=== PATIENT | male | born 1930 | race Two or more races ===

== ENCOUNTER 2017-07-23 15:19 | Inpatient (IN) | payer MEDICARE, MEDICAID ==
--- NOTE | 2017-07-23 15:59 | ED Physician Chart ---
ED Chief Complaint/HPI - Patient Information Date Seen:: 07/23/17 Time Seen:: 15:50 Chief Complaint:: Aggressive for 2 weeks History of Present Illness:: 86 yo male, with chronic CHF, AFib on coumadin, dementia for 4 years, resided in a convalescent home. The patient was brought to ER by ambulance and the daughter also presented at ER. Per daughter, the patient was noticed to be aggressive for 2 weeks. He would not follow command. Refused to be changed for clothing. Refused to have shower. His urine was noticed to have bad odor. The facility requested further evaluation and management of the patient. The patient was hospitalized 4 months ago altered mental status. Allergies:: Allergies Allergy/AdvReac Type Severity Reaction Status Date / Time No Known Allergies Allergy Verified 07/23/17 15:30 Vitals:: Vital Signs - 8 hr 07/23/17 15:30 Temp 97.8 F HR 78 RR 15 BP 108/50 O2 Sat % 98 ED Review of Systems - Review of Systems Skin: No skin lesions Head: No headache ENT: No earache Neck: No neck pain Cardio Vascular: No chest pain Pulmonary: No SOB GI: No vomiting G/U: Other (urinary retention ) Musculoskeletal: Bone or joint pain Endocrine: Polyuria ED Past Medical History - Past Medical History Obtainable: Yes (History was provided by his daughter) Past Medical History: CAD, Dementia Family History: None Social History: Smoker (quit 6 years ago), Alcohol (quit 6 years ago), No Drug Use Surgical History: CABG (triple vessel bipass) Family Medical History - Family Member Mother History Unknown: Yes Ethnicity: Living Status: ED Physical Exam - Physical Examination General/Constitutional: Awake Other Gen/Cons comments:: wheelchair bound Head: Atraumatic Eyes: Lids, conjuctiva normal, PERRL, EOMI Other ENMT comments:: repetitive spitting, hearing loss left ear, hearing impairment right ear Neck: Full ROM w/o pain Respiratory: Clear to Auscultation Cardio Vascular: RRR, No murmur, gallop, rubs, NL S1 S2 GI: No organomegaly, Nondistended Other comments:: wearing diaper Extremities: No edema Other Neuro/Psych comments:: Oriented to name only ED Labs/Radiology/EKG Results - Lab Results Results: Na 134 ED Assessment - Assessment General Assessment: Dementia Altered mental status CHF Afib Hyponatremia Excludes all billable procedures: Yes This condition life threatening/high prob of deterioration: No Assessment/Comments:: CBC, CMP, UA/UC, CXR, EKG, BNP, Troponin NS 1L bolus Admit to inpatient services ED Septic Shock - . Is Septic Shock (SBP<90, OR Lactate>4 mmol\L) present?: No - <6hrs of presentation: Vital Signs: Vital Signs - 8 hr 07/23/17 15:30 Temp 97.8 F HR 78 RR 15 BP 108/50 O2 Sat % 98 ED Discharge Plan - Patient Disposition Admit/Discharge/Transfer: Acute Care w/in this hosp Condition at Disposition: Unchanged
[2017-07-23 16:39] LABS: URINE BILIRUBIN NEGATIVE (NEGATIVE); URINE BLOOD NEGATIVE (NEGATIVE); URINE GLUCOSE (UA) NEGATIVE (NEGATIVE); URINE KETONE NEGATIVE (NEGATIVE); URINE PROTEIN NEGATIVE (NEGATIVE); URINE UROBILINOGEN 0.2 E.U./dL (0.2 - 1.0)
[2017-07-23 16:45] LABS: % BASOPHILS 0.3 % (0.0-2.0); % EOSINOPHILS 4.2 % (0.0-5.0); % LYMPHOCYTES 25.8 % (20.0-50.0); % MONOCYTES 12.7 % (2.0-10.0); HEMOGLOBIN 12.5 gm/dL (12-16); MEAN CELL VOLUME 84.9 fl (80-99); MEAN CORPUSCULAR HEMOGLOBIN 28.7 pg (27.0-31.0); MEAN CORPUSCULAR HGB CONC 33.8 pg (28.0-36.0); MEAN PLATELET VOLUME 10.5 fl; NEUTROPHILE ABSOLUTE 3.4 Th/cmm (1.8-8.0); PLATELET COUNT 74 Th/cmm (150-400); RED BLOOD COUNT 4.36 Mil/cmm (3.80-5.80); RED CELL DISTRIBUTION WIDTH 14.8 % (11.5-20.0)
[2017-07-23 16:59] LABS: URINE COLOR YELLOW
[2017-07-23 17:01] LABS: URINE BACTERIA NONE SEEN /hpf (NONE SEEN); URINE EPITHELIAL CELLS NONE SEEN /lpf (FEW); URINE RBC NONE SEEN /hpf (0-5); URINE WBC NONE SEEN /hpf (0-5)
[2017-07-23 17:08] LABS: ALB/GLOB RATIO 1.1 (1.0-1.8); ALKALINE PHOSPHATASE 98 U/L (34-104); ANION GAP 7.6 (7.0-16.0); BILIRUBIN,TOTAL 0.3 mg/dL (0.3-1.0); BUN - UREA NITROGEN 22 mg/dL (7-25); CALCIUM SERUM 8.7 mg/dL (8.6-10.3); CARBON DIOXIDE 26.6 mEq/L (21.0-31.0); CHLORIDE 104 mEq/L (98-107); CREATININE - SERUM 1.1 mg/dL (0.7-1.3); GLUCOSE 103 mg/dL (70-105); POTASSIUM SERUM 4.2 mEq/L (3.5-5.1); SGOT 14 U/L (13-39); SGPT/ALT 12 U/L (7-52); SODIUM SERUM 134 mEq/L (136-145)
[2017-07-23] MEDS ORDERED: Sodium Chloride 0.9% 1,000 ML IV ONE (17:13)
[2017-07-23 19:48] LABS: INR 2.32 (0.5-1.4); PROTHROMBIN TIME (TEST) 25.3 SECONDS (9.5-11.5)
[2017-07-23 23:38] VITALS: BP 137/68
[2017-07-23] MEDS ORDERED: Pneumococcal Vaccine 0.5 mL Vial IM ONE (23:49)
--- NOTE | 2017-07-23 23:59 | History & Physical ---
ADMIT DATE: 07/23/2017 CHIEF COMPLAINT: Agitation and shortness of breath. HISTORY OF PRESENT ILLNESS: The patient is an 86-year-old male with long history of dementia, CHF, coronary artery disease, resident at [facility], transferred to the Emergency Room with shortness of breath and agitation. Initial workup significant for CHF exacerbation. The patient admitted to telemetry for more advanced treatment. The patient is a poor historian. PAST MEDICAL HISTORY: Significant for hypertension, coronary artery disease, CHF, and dementia. PAST SURGICAL HISTORY: No recent surgery. ALLERGIES: None. MEDICATIONS: Follow admission reconciliation. SOCIAL HISTORY: No smoking, alcohol or drug use. FAMILY HISTORY: Noncontributory. REVIEW OF SYSTEMS: RENAL SYSTEM: No history of chronic renal disorder. CARDIOVASCULAR SYSTEM: He has history of coronary artery disease, CHF and hypertension. ENDOCRINE SYSTEM: No diabetes or thyroid problem. GASTROINTESTINAL SYSTEM: No upper or lower gastrointestinal bleed. NEUROLOGICAL SYSTEM: No seizure disorder. MUSCULOSKELETAL SYSTEM: No muscular dystrophy. HEMATOLOGIC SYSTEM: No bleeding tendencies. RESPIRATORY SYSTEM: No asthma. GENITOURINARY: No dysuria or hematuria. PHYSICAL EXAMINATION: GENERAL: He is awake, not coherent. VITAL SIGNS: Temperature 98, heart rate . HEENT: Normocephalic. Pupils reactive to light and accommodation. Sclerae clear. NECK: Supple. Negative for lymphadenopathy, JVD, or bruit. CHEST: Entry of air bilaterally diminished. No rhonchi, rales, or wheezing. HEART: S1, S2 normal. No murmur or gallop. ABDOMEN: Soft. Bowel sounds positive. EXTREMITIES: No edema. NEUROLOGIC: He is awake, not coherent. ASSESSMENT: 1. Acute exacerbation of congestive heart failure. 2. Hypertension. 3. Coronary artery disease. 4. Dementia. 5. Hyperlipidemia. 6. Benign prostatic hypertrophy. PLAN: The patient is in the hospital under Dr. Cabrera's service. He is started on cardiac diet. The patient will resume his medications. CBC, CMP, PT, INR and BMP in a.m. The patient is a full code. JOB# [id number]
--- NOTE | 2017-07-24 08:20 | Diagnostic Imaging Report ---
Exam: Portable summation of chest HISTORY: Bony. Findings: Portable examination of the chest at 1633 hours reviewed. The study demonstrates multiple metallic sutures status transsternal thoracotomy. No active pulmonic infiltrates or effusions are noted. COPD changes appreciated. Bony thorax is intact. IMPRESSION: No acute disease. Mild congestion cannot be excluded. Clinical correlation and follow-up dictation recommended.
[2017-07-24] MEDS: Aspirin 81mg Chewable Tab PO SCH (09:13)
[2017-07-24 10:05] LABS: % BASOPHILS 0.2 % (0.0-2.0); % EOSINOPHILS 3.8 % (0.0-5.0); % LYMPHOCYTES 17.6 % (20.0-50.0); % MONOCYTES 9.8 % (2.0-10.0); % NEUTROPHILS 68.6 % (40.0-80.0); HEMATOCRIT 38.8 % (41.0-60); HEMOGLOBIN 12.7 gm/dL (12-16); MEAN CELL VOLUME 83.7 fl (80-99); MEAN CORPUSCULAR HEMOGLOBIN 27.5 pg (27.0-31.0); MEAN CORPUSCULAR HGB CONC 32.8 pg (28.0-36.0); MEAN PLATELET VOLUME 10.5 fl; PLATELET COUNT 76 Th/cmm (150-400); RED BLOOD COUNT 4.64 Mil/cmm (3.80-5.80); RED CELL DISTRIBUTION WIDTH 15.1 % (11.5-20.0)
[2017-07-24 10:06] LABS: WHITE BLOOD COUNT 7.3 Th/cmm (4.8-10.8)
[2017-07-24 10:17] LABS: INR 2.32 (0.5-1.4); PROTHROMBIN TIME (TEST) 25.2 SECONDS (9.5-11.5)
[2017-07-24 10:24] LABS: ALKALINE PHOSPHATASE 85 U/L (34-104); ANION GAP 4.4 (7.0-16.0); BILIRUBIN,TOTAL 0.3 mg/dL (0.3-1.0); BUN - UREA NITROGEN 15 mg/dL (7-25); BUN/CREATININE RATIO 16.7; CALCIUM SERUM 8.3 mg/dL (8.6-10.3); CARBON DIOXIDE 26.5 mEq/L (21.0-31.0); CHLORIDE 106 mEq/L (98-107); CREATININE - SERUM 0.9 mg/dL (0.7-1.3); GLUCOSE 85 mg/dL (70-105); POTASSIUM SERUM 3.9 mEq/L (3.5-5.1); SGOT 15 U/L (13-39); SGPT/ALT 10 U/L (7-52); SODIUM SERUM 133 mEq/L (136-145)
--- NOTE | 2017-07-24 14:05 | Internal Medicine Prog Note ---
Internal Medicine Subjective - Subjective Service Date: 07/24/17 Patient seen and examined:: with staff (HE IS MORE QUIETE,NOT COHERENT.) Patient is:: awake, non-interactive, in bed, confused Per staff patient has:: no adverse event Internal Medicine Objective - Results Result Diagrams: 07/24/17 09:57 07/24/17 09:57 Recent Labs: Laboratory Last Values WBC 7.3 Th/cmm (4.8-10.8) D 07/24/17 09:57 RBC 4.64 Mil/cmm (3.80-5.80) 07/24/17 09:57 Hgb 12.7 gm/dL (12-16) 07/24/17 09:57 Hct 38.8 % (41.0-60) L 07/24/17 09:57 MCV 83.7 fl (80-99) 07/24/17 09:57 MCH 27.5 pg (27.0-31.0) 07/24/17 09:57 MCHC Differential 32.8 pg (28.0-36.0) 07/24/17 09:57 RDW 15.1 % (11.5-20.0) 07/24/17 09:57 Plt Count 76 Th/cmm (150-400) L 07/24/17 09:57 MPV 10.5 fl 07/24/17 09:57 Neutrophils % 68.6 % (40.0-80.0) 07/24/17 09:57 Lymphocytes % 17.6 % (20.0-50.0) L 07/24/17 09:57 Monocytes % 9.8 % (2.0-10.0) 07/24/17 09:57 Eosinophils % 3.8 % (0.0-5.0) 07/24/17 09:57 Basophils % 0.2 % (0.0-2.0) 07/24/17 09:57 PT 25.2 SECONDS (9.5-11.5) H 07/24/17 09:57 INR 2.32 (0.5-1.4) H 07/24/17 09:57 PTT (Actin FS) 40.6 SECONDS (26.0-38.0) H 07/23/17 16:25 Sodium 133 mEq/L (136-145) L 07/24/17 09:57 Potassium 3.9 mEq/L (3.5-5.1) 07/24/17 09:57 Chloride 106 mEq/L (98-107) 07/24/17 09:57 Carbon Dioxide 26.5 mEq/L (21.0-31.0) 07/24/17 09:57 Anion Gap 4.4 (7.0-16.0) L 07/24/17 09:57 BUN 15 mg/dL (7-25) 07/24/17 09:57 Creatinine 0.9 mg/dL (0.7-1.3) 07/24/17 09:57 Est GFR ( Amer) TNP 07/24/17 09:57 Est GFR (Non-Af Amer) TNP 07/24/17 09:57 BUN/Creatinine Ratio 16.7 07/24/17 09:57 Glucose 85 mg/dL (70-105) 07/24/17 09:57 Calcium 8.3 mg/dL (8.6-10.3) L 07/24/17 09:57 Total Bilirubin 0.3 mg/dL (0.3-1.0) 07/24/17 09:57 AST 15 U/L (13-39) 07/24/17 09:57 ALT 10 U/L (7-52) 07/24/17 09:57 Alkaline Phosphatase 85 U/L (34-104) 07/24/17 09:57 Troponin I 0.02 ng/mL (0.01-0.05) 07/23/17 16:25 B-Natriuretic Peptide 223.0 pg/mL (5.0-100.0) H 07/23/17 16:25 Total Protein 6.3 gm/dL (6.0-8.3) 07/24/17 09:57 Albumin 3.1 gm/dL (4.2-5.5) L 07/24/17 09:57 Globulin 3.2 gm/dL 07/24/17 09:57 Albumin/Globulin Ratio 1.0 (1.0-1.8) 07/24/17 09:57 Prostate Specific Ag 1.9 ng/mL (0.0-4.0) 07/23/17 16:25 Urine Source CATH 07/23/17 16:17 Urine Color YELLOW 07/23/17 16:17 Urine Clarity CLEAR (CLEAR) 07/23/17 16:17 Urine pH 6.0 (4.6 - 8.0) 07/23/17 16:17 Ur Specific [place] 1.025 (1.005-1.030) 07/23/17 16:17 Urine Protein NEGATIVE mg/dL (NEGATIVE) 07/23/17 16:17 Urine Glucose (UA) NEGATIVE mg/dL (NEGATIVE) 07/23/17 16:17 Urine Ketones NEGATIVE mg/dL (NEGATIVE) 07/23/17 16:17 Urine Blood NEGATIVE (NEGATIVE) 07/23/17 16:17 Urine Nitrate NEGATIVE (NEGATIVE) 07/23/17 16:17 Urine Bilirubin NEGATIVE (NEGATIVE) 07/23/17 16:17 Urine Urobilinogen 0.2 E.U./dL (0.2 - 1.0) 07/23/17 16:17 Ur Leukocyte Esterase NEGATIVE (NEGATIVE) 07/23/17 16:17 Urine RBC NONE SEEN /hpf (0-5) 07/23/17 16:17 Urine WBC NONE SEEN /hpf (0-5) 07/23/17 16:17 Ur Epithelial Cells NONE SEEN /lpf (FEW) 07/23/17 16:17 Urine Bacteria NONE SEEN /hpf (NONE SEEN) 07/23/17 16:17 - Physical Exam Vitals and I&O: Vital Signs Temp 97.6 F 07/24/17 09:39 Pulse 71 07/24/17 09:39 Resp 18 07/24/17 09:39 BP 144/66 07/24/17 09:39 Pulse Ox 96 07/24/17 09:39 Intake & Output 07/23/17 07/24/17 07/24/17 18:59 06:59 18:59 Intake Total 120 Balance 120 Weight (lbs) 63.049 kg Intake: Oral 120 Other: # Voids 5 Active Medications: Current Medications Acetaminophen (Tylenol) 650 mg PO Q4HR PRN PRN Reason: Pain or Fever >101 Stop: 09/21/17 21:30 Amiodarone HCl (Cordarone) 200 mg PO DAILY [facility] Stop: 09/22/17 08:59 Last Admin: 07/24/17 09:13 Dose: 200 mg Aspirin (Aspirin Chewable) 81 mg PO DAILY [facility] Stop: 09/22/17 08:59 Last Admin: 07/24/17 09:13 Dose: 81 mg Atorvastatin Calcium (Lipitor) 20 mg PO HS EV Stop: 09/22/17 20:59 Carvedilol (Coreg) 3.125 mg PO BID EV Stop: 09/22/17 08:59 Last Admin: 07/24/17 09:14 Dose: 3.125 mg Folic Acid (Folate) 1 mg PO DAILY [facility] Stop: 09/22/17 08:59 Last Admin: 07/24/17 09:14 Dose: 1 mg Furosemide (Lasix) 20 mg PO DAILY [facility] Stop: 09/22/17 08:59 Last Admin: 07/24/17 09:13 Dose: 20 mg Lorazepam (Ativan) 0.5 mg PO Q6HR PRN; Protocol PRN Reason: Agitation Stop: 09/22/17 12:50 Memantine (Namenda) 10 mg PO HS [facility] Stop: 09/22/17 20:59 Tamsulosin HCl (Flomax) 0.4 mg PO BID EV Stop: 09/22/17 08:59 Last Admin: 07/24/17 09:13 Dose: 0.4 mg Warfarin Sodium (Coumadin) 1 mg PO C [facility] PRN Reason: Protocol Stop: 09/22/17 12:59 Last Admin: 07/24/17 13:17 Dose: 1 mg Warfarin Sodium (Coumadin Per Pharmacy) 1 ea [facility] PRN PRN; Protocol PRN Reason: RX MONITORING Stop: 09/22/17 10:12 General: demented HEENT: NC/AT, PERRLA, EOMI Neck: Supple Lungs: CTAB Cardiovascular: Normal S1, Normal S2, without murmur Abdomen: soft, non-tender, non-distended Extremities: clear Neurological: no change Internal Medicine Assmt/Plan - Assessment Assessment: 1.CHF EXACERBATION. 2.HTN. 3.CAD. 4.DEMENTIA. - Plan Plan: CONTINUE ON CURRENT MEDICATION AND DIET.
[2017-07-24] MEDS: Atorvastatin Calcium 10 MG TAB PO SCH (20:26)
--- NOTE | 2017-07-25 05:35 | Consultation ---
DATE OF CONSULTATION: 07/24/2017 IDENTIFYING INFORMATION: The patient is an 86-year-old male. REASON FOR CONSULTATION: The patient has been yelling and screaming, agitated, yelling at staff, trying to hit the staff, hard to redirect, throwing things. HISTORY OF PRESENT ILLNESS: The patient was admitted because of congestive heart failure. He is demented and has coronary artery disease, he is a resident of [facility] and transferred to the Emergency Room, ____ staff and agitation. He was diagnosed with congestive heart failure, was admitted to telemetry. The patient himself was a poor historian. He is demented, confused. He has been on Namenda. PAST PSYCHIATRIC HISTORY: Dementia. MEDICAL HISTORY: As per medical Dr. Cabrera, the patient has acute exacerbation, congestive heart failure, hypertension, coronary artery disease, hyperlipidemia and benign prostatic hypertrophy. ALLERGIES: The patient has no known drug allergies. FAMILY AND SOCIAL HISTORY: The family was here earlier, the patient has been a resident at [facility] and no further information is available. MENTAL STATUS EXAMINATION: The patient is appropriately dressed, not well groomed. He was semi-alert, he was uncooperative, earlier he was yelling and screaming, unable to make safe plan for self-care or make reasonable plan for self-care or participate in meaningful conversation, unable to test his memory, he would not answer any questions, but he has been aggressive, irritable, demented, confused. His insight and judgment is impaired. He would not answer any question regarding hallucination or paranoia. They reported earlier, that he slept last night and eating well. IMPRESSION: AXIS I: Mood disorder, not otherwise specified, dementia. MEDICAL DIAGNOSES: Deferred to Dr. Cabrera. I would recommend to add Ativan and if needed then can add Risperdal. The patient was transferred to [facility] if continues to be agitated and medically cleared. Thank you very much for allowing me to participate in the care of this most interesting gentleman. JOB# [id number]
[2017-07-25 08:53] LABS: PROTHROMBIN TIME (TEST) 21.5 SECONDS (9.5-11.5)
[2017-07-25] MEDS: Aspirin 81mg Chewable Tab PO SCH (08:59)
[2017-07-25] MEDS: Atorvastatin Calcium 10 MG TAB PO SCH (20:40)
--- NOTE | 2017-07-25 20:47 | Internal Medicine Prog Note ---
Internal Medicine Subjective - Subjective Service Date: 07/25/17 Patient seen and examined:: with staff (HE IS DOIN WELL.) Patient is:: awake, non-interactive, in bed, confused Per staff patient has:: no adverse event Internal Medicine Objective - Results Result Diagrams: 07/24/17 09:57 07/24/17 09:57 Recent Labs: Laboratory Last Values WBC 7.3 Th/cmm (4.8-10.8) D 07/24/17 09:57 RBC 4.64 Mil/cmm (3.80-5.80) 07/24/17 09:57 Hgb 12.7 gm/dL (12-16) 07/24/17 09:57 Hct 38.8 % (41.0-60) L 07/24/17 09:57 MCV 83.7 fl (80-99) 07/24/17 09:57 MCH 27.5 pg (27.0-31.0) 07/24/17 09:57 MCHC Differential 32.8 pg (28.0-36.0) 07/24/17 09:57 RDW 15.1 % (11.5-20.0) 07/24/17 09:57 Plt Count 76 Th/cmm (150-400) L 07/24/17 09:57 MPV 10.5 fl 07/24/17 09:57 Neutrophils % 68.6 % (40.0-80.0) 07/24/17 09:57 Lymphocytes % 17.6 % (20.0-50.0) L 07/24/17 09:57 Monocytes % 9.8 % (2.0-10.0) 07/24/17 09:57 Eosinophils % 3.8 % (0.0-5.0) 07/24/17 09:57 Basophils % 0.2 % (0.0-2.0) 07/24/17 09:57 PT 21.5 SECONDS (9.5-11.5) H 07/25/17 08:12 INR 2.00 (0.5-1.4) H 07/25/17 08:12 PTT (Actin FS) 40.6 SECONDS (26.0-38.0) H 07/23/17 16:25 Sodium 133 mEq/L (136-145) L 07/24/17 09:57 Potassium 3.9 mEq/L (3.5-5.1) 07/24/17 09:57 Chloride 106 mEq/L (98-107) 07/24/17 09:57 Carbon Dioxide 26.5 mEq/L (21.0-31.0) 07/24/17 09:57 Anion Gap 4.4 (7.0-16.0) L 07/24/17 09:57 BUN 15 mg/dL (7-25) 07/24/17 09:57 Creatinine 0.9 mg/dL (0.7-1.3) 07/24/17 09:57 Est GFR ( Amer) TNP 07/24/17 09:57 Est GFR (Non-Af Amer) TNP 07/24/17 09:57 BUN/Creatinine Ratio 16.7 07/24/17 09:57 Glucose 85 mg/dL (70-105) 07/24/17 09:57 Calcium 8.3 mg/dL (8.6-10.3) L 07/24/17 09:57 Total Bilirubin 0.3 mg/dL (0.3-1.0) 07/24/17 09:57 AST 15 U/L (13-39) 07/24/17 09:57 ALT 10 U/L (7-52) 07/24/17 09:57 Alkaline Phosphatase 85 U/L (34-104) 07/24/17 09:57 Troponin I 0.02 ng/mL (0.01-0.05) 07/23/17 16:25 B-Natriuretic Peptide 223.0 pg/mL (5.0-100.0) H 07/23/17 16:25 Total Protein 6.3 gm/dL (6.0-8.3) 07/24/17 09:57 Albumin 3.1 gm/dL (4.2-5.5) L 07/24/17 09:57 Globulin 3.2 gm/dL 07/24/17 09:57 Albumin/Globulin Ratio 1.0 (1.0-1.8) 07/24/17 09:57 Prostate Specific Ag 1.9 ng/mL (0.0-4.0) 07/23/17 16:25 Urine Source CATH 07/23/17 16:17 Urine Color YELLOW 07/23/17 16:17 Urine Clarity CLEAR (CLEAR) 07/23/17 16:17 Urine pH 6.0 (4.6 - 8.0) 07/23/17 16:17 Ur Specific [place] 1.025 (1.005-1.030) 07/23/17 16:17 Urine Protein NEGATIVE mg/dL (NEGATIVE) 07/23/17 16:17 Urine Glucose (UA) NEGATIVE mg/dL (NEGATIVE) 07/23/17 16:17 Urine Ketones NEGATIVE mg/dL (NEGATIVE) 07/23/17 16:17 Urine Blood NEGATIVE (NEGATIVE) 07/23/17 16:17 Urine Nitrate NEGATIVE (NEGATIVE) 07/23/17 16:17 Urine Bilirubin NEGATIVE (NEGATIVE) 07/23/17 16:17 Urine Urobilinogen 0.2 E.U./dL (0.2 - 1.0) 07/23/17 16:17 Ur Leukocyte Esterase NEGATIVE (NEGATIVE) 07/23/17 16:17 Urine RBC NONE SEEN /hpf (0-5) 07/23/17 16:17 Urine WBC NONE SEEN /hpf (0-5) 07/23/17 16:17 Ur Epithelial Cells NONE SEEN /lpf (FEW) 07/23/17 16:17 Urine Bacteria NONE SEEN /hpf (NONE SEEN) 07/23/17 16:17 - Physical Exam Vitals and I&O: Vital Signs Temp 98.7 F 07/25/17 16:00 Pulse 60 07/25/17 16:41 Resp 18 07/25/17 16:00 BP 119/72 07/25/17 16:41 Pulse Ox 96 07/25/17 16:00 Intake & Output 07/25/17 07/25/17 07/26/17 06:59 18:59 06:59 Intake Total 100 640 Output Total 500 1000 Balance -400 -360 Weight (lbs) 71.985 kg 63.049 kg Intake: Oral 100 640 Output: Urine 500 1000 Other: # Bowel Movements 0 1 Active Medications: Current Medications Acetaminophen (Tylenol) 650 mg PO Q4HR PRN PRN Reason: Pain or Fever >101 Stop: 09/21/17 21:30 Amiodarone HCl (Cordarone) 200 mg PO DAILY [facility] Stop: 09/22/17 08:59 Last Admin: 07/25/17 08:58 Dose: 200 mg Aspirin (Aspirin Chewable) 81 mg PO DAILY [facility] Stop: 09/22/17 08:59 Last Admin: 07/25/17 08:59 Dose: 81 mg Atorvastatin Calcium (Lipitor) 20 mg PO HS [facility] Stop: 09/22/17 20:59 Last Admin: 07/25/17 20:40 Dose: 20 mg Carvedilol (Coreg) 3.125 mg PO BID EV Stop: 09/22/17 08:59 Last Admin: 07/25/17 16:41 Dose: 3.125 mg Folic Acid (Folate) 1 mg PO DAILY [facility] Stop: 09/22/17 08:59 Last Admin: 07/25/17 08:59 Dose: 1 mg Furosemide (Lasix) 20 mg PO DAILY [facility] Stop: 09/22/17 08:59 Last Admin: 07/25/17 08:58 Dose: 20 mg Lorazepam (Ativan) 0.5 mg PO Q6HR PRN; Protocol PRN Reason: Agitation Stop: 09/22/17 12:50 Last Admin: 07/25/17 13:29 Dose: 0.5 mg Memantine (Namenda) 10 mg PO HS [facility] Stop: 09/22/17 20:59 Last Admin: 07/25/17 20:40 Dose: 10 mg Tamsulosin HCl (Flomax) 0.4 mg PO BID [facility] Stop: 09/22/17 08:59 Last Admin: 07/25/17 16:41 Dose: 0.4 mg Warfarin Sodium (Coumadin) 1 mg PO C [facility] PRN Reason: Protocol Stop: 09/22/17 12:59 Last Admin: 07/25/17 13:29 Dose: 1 mg Warfarin Sodium (Coumadin Per Pharmacy) 1 ea [facility] PRN PRN; Protocol PRN Reason: RX MONITORING Stop: 09/22/17 10:12 General: demented HEENT: NC/AT, PERRLA, EOMI Neck: Supple Lungs: CTAB Cardiovascular: Normal S1, Normal S2, without murmur Abdomen: soft, non-tender, non-distended Extremities: clear Neurological: no change Internal Medicine Assmt/Plan - Assessment Assessment: 1.CHF EXACERBATION. 2.HTN. 3.CAD. 4.DEMENTIA. - Plan Plan: CONTINUE ON CURRENT MEDICATION AND DIET.HE IS CLEAR TO GO TO [facility].
--- NOTE | 2017-07-26 02:25 | Progress Notes ---
DATE: 07/25/2017 Case was discussed with staff of the patient. The patient is a bit calmer today. He was feeding himself, but however, he was impacted with me in any meaningful conversations internally occupied, but is acting out. Behavior is better. He is not throwing things and yelling and screaming as he was yesterday and he started acting out, can go to [facility] if medically cleared. Thank you very much for allowing me to participate in the care of this most interesting gentleman. JOB# [id number]
[2017-07-26 06:09] LABS: INR 1.9 (0.5-1.4); PROTHROMBIN TIME (TEST) 20.5 SECONDS (9.5-11.5)
[2017-07-26] MEDS: Aspirin 81mg Chewable Tab PO SCH (09:14)
[2017-07-26] MEDS ORDERED: Haloperidol Lactate 5 mg/mL 1mL Vial ONE (10:53)
[2017-07-26] MEDS ORDERED: Haloperidol Lactate 5 mg/mL 1mL Vial IM ONE (11:03)
== END 2017-07-26 15:29 | DRG 292 ==
LOC: ER 15:19 → TELE 19:40 → MSI 07-26 08:58
PROVIDERS: ADMIT Family Medicine; ATTEND Family Medicine
DX: I11.0 Hypertensive heart disease with heart failure (principal); E87.1 Hypo-osmolality and hyponatremia; F03.90 Unspecified dementia, unspecified severity, without behavioral disturbance, psychotic disturbance, mood disturbance, and anxiety; I48.91 Unspecified atrial fibrillation; I50.43 Acute on chronic combined systolic (congestive) and diastolic (congestive) heart failure; I50.42 Chronic combined systolic (congestive) and diastolic (congestive) heart failure; F17.210 Nicotine dependence, cigarettes, uncomplicated; F39 Unspecified mood [affective] disorder; I25.10 Atherosclerotic heart disease of native coronary artery without angina pectoris; E78.5 Hyperlipidemia, unspecified; N40.0 Benign prostatic hyperplasia without lower urinary tract symptoms; Z95.1 Presence of aortocoronary bypass graft; Z79.01 Long term (current) use of anticoagulants
CPT/HCPCS: 36415-UA; 71010-TC; 80053-TC; 81001-TC; 83880-TC; 84153-90; 84484-TC; 85025-TC; 85610-TC; 93005; J1200; J1630; J2060; J7030; Z7610

== ENCOUNTER 2017-07-26 15:32 | Inpatient (IN) | payer MEDICARE, MEDICAID ==
[2017-07-26 16:26] VITALS: BP 136/68
[2017-07-26] MEDS: Atorvastatin Calcium 10 MG TAB PO SCH (20:58)
--- NOTE | 2017-07-26 22:30 | Progress Notes ---
DATE: 07/26/2017 Case was discussed with staff of the patient, reviewed records. The patient continues to be on 1:1. He is unpredictable, impulsive, needing redirection. He is not responding well to redirection. The patient still unpredictable, impulsive. The patient will be transferred to [facility] and to further adjust his medications ____. Thank you very much for allowing me to participate in the care of this interesting gentleman. JOB# [id number]
[2017-07-27 06:32] LABS: INR 2.09 (0.5-1.4); PROTHROMBIN TIME (TEST) 22.6 SECONDS (9.5-11.5)
[2017-07-27 08:07] LABS: HEMATOCRIT 42.2 % (41.0-60)
[2017-07-27] MEDS: Aspirin 81mg Chewable Tab PO SCH (10:23)
--- NOTE | 2017-07-27 12:52 | History & Physical ---
ADMIT DATE: 07/27/2017 HISTORY OF PRESENT ILLNESS: The patient is an 86-year-old male with long history of coronary artery disease, ischemic cardiomyopathy, and dementia, admitted to Geropsych Department at [facility] for more advanced treatment. Apparently, the patient recently had been yelling and has aggressive behavior, otherwise no fever, no chills, no shortness of breath. PAST MEDICAL HISTORY: Significant for dementia, coronary artery disease, and ischemic cardiomyopathy. PAST SURGICAL HISTORY: No recent surgery. ALLERGIES: None. MEDICATIONS: Follow admission reconciliation. SOCIAL HISTORY: No smoking, alcohol or drug use. FAMILY HISTORY: Noncontributory. REVIEW OF SYSTEMS: RENAL SYSTEM: No history of chronic renal disorder. CARDIOVASCULAR SYSTEM: He has history of coronary artery disease and cardiomyopathy. ENDOCRINE SYSTEM: No diabetes or thyroid problem. GASTROINTESTINAL SYSTEM: No upper or lower gastrointestinal bleed. NEUROLOGICAL: He has history of dementia. PHYSICAL EXAMINATION: GENERAL: He is awake, not coherent. VITAL SIGNS: Temperature 98, heart rate 64, blood pressure 99/58. HEENT: Normocephalic. Pupils reacting to light and accommodation. Sclerae clear. NECK: Supple. Negative for lymphadenopathy, JVD or bruit. CHEST: Bilateral normal. No rhonchi or wheezing. HEART: S1 and S2 normal. ABDOMEN: Soft. Bowel sounds positive. EXTREMITIES: No edema. NEUROLOGIC: He is awake, moving upper and lower extremities, not following commands. LABORATORY DATA: INR 2.09. ASSESSMENT: 1. Coronary artery disease. 2. Ischemic cardiomyopathy. 3. Hyperlipidemia. 4. Dementia. PLAN: The patient admitted to the hospital under Dr. Lynch's service. MEDICAL PROBLEM TO BE ADDRESSED DURING HOSPITALIZATION: Dementia and psychosis. MEDICAL PROBLEMS TO BE ADDRESSED AT DISCHARGE: Cardiomyopathy and hyperlipidemia. The patient will continue on current medication and diet and we will continue monitoring his PT/INR by the pharmacist. Also, we are going to order CBC for tomorrow. The patient is a full code. Case discussed with the family over telephone. JOB# [id number]
--- NOTE | 2017-07-27 13:52 | History & Physical ---
ADMIT DATE: 07/26/2017 IDENTIFYING INFORMATION: The patient is an 86-year-old male. CHIEF COMPLAINT: No answer. HISTORY OF PRESENT ILLNESS: The patient was transferred from the medical floor. I have seen him on the med/surg unit, he was acting out. He was not cooperative, easily agitated. I initiated on him Ativan. The patient is a poor historian. Unable to participate in a meaningful conversation or make plan for self-care. PAST PSYCHIATRIC HISTORY: Unobtainable. ALLERGIES: THE PATIENT HAS NO KNOWN DRUG ALLERGIES. MEDICAL HISTORY: The patient has benign prostatic hypertrophy, hypertension, and hypercholesterolemia. MEDICATIONS: He is on blood thinners. FAMILY AND SOCIAL HISTORY: Unobtainable. MENTAL STATUS EXAMINATION: The patient is appropriately dressed, not well groomed. He was irritable and somewhat angry, unable to participate in a meaningful conversation or make a plan for self-care. His long and short term memory is poor, unable to answer questions or suicide, homicide or tell me her, his age, where he is, why he is here. Insight and judgment is impaired. IMPRESSION: AXIS I: Psychosis, not otherwise specified, and dementia. MEDICAL DIAGNOSIS: Deferred to the medical doctor. PLAN: The patient will do group therapy, milieu therapy, and individual therapy. DISCHARGE CRITERIA: Decrease in agitation, psychosis after discharge. JOB# [id number]
[2017-07-27] MEDS: Atorvastatin Calcium 10 MG TAB PO SCH (21:23)
[2017-07-28] MEDS: Aspirin 81mg Chewable Tab PO SCH (08:46)
[2017-07-28] MEDS: Atorvastatin Calcium 10 MG TAB PO SCH (20:39)
--- NOTE | 2017-07-28 20:50 | Progress Notes ---
DATE: 07/28/2017 Case was discussed with staff of the patient, reviewed records. The patient continues to be confused, continues to have episodes where he is irritable and inappropriate. He has been compliant with the medications so far with no side effects, no sedation, no nausea. His platelet count is low at 71 and his hemoglobin is within normal range, hematocrit within normal range. ____ screening was negative. I think the medical doctors ____, however, I will make sure the staff call him and let Dr. Cabrera know about it. We will continue to work with the patient in group therapy, milieu therapy, and adjust the medication as needed. JOB# [id number]
--- NOTE | 2017-07-28 22:44 | Internal Medicine Prog Note ---
Internal Medicine Subjective - Subjective Service Date: 07/28/17 Patient seen and examined:: without staff Patient is:: awake, non-verbal, in bed, confused Per staff patient has:: no adverse event Internal Medicine Objective - Results Result Diagrams: 07/27/17 06:00 Recent Labs: Laboratory Last Values Hgb 14.0 gm/dL (12-16) 07/27/17 06:00 Hct 42.2 % (41.0-60) 07/27/17 06:00 Plt Count 71 Th/cmm (150-400) L 07/27/17 06:00 PT 22.6 SECONDS (9.5-11.5) H 07/27/17 06:00 INR 2.09 (0.5-1.4) H 07/27/17 06:00 - Physical Exam Vitals and I&O: Vital Signs Temp 97.7 F 07/28/17 22:05 Pulse 72 07/28/17 22:05 Resp 19 07/28/17 22:05 BP 107/63 07/28/17 22:05 Pulse Ox 97 07/28/17 22:05 Intake & Output 07/28/17 07/28/17 07/29/17 06:59 18:59 06:59 Intake Total 240 1000 Balance 240 1000 Intake: Oral 240 1000 Other: # Voids 3 3 # Bowel Movements 0 1 Active Medications: Current Medications Acetaminophen (Tylenol) 650 mg PO Q4H PRN PRN Reason: Pain (Mild) Stop: 09/24/17 18:50 Amiodarone HCl (Cordarone) 200 mg PO DAILY [facility] Stop: 09/25/17 08:59 Last Admin: 07/28/17 08:46 Dose: 200 mg Aspirin (Aspirin Chewable) 81 mg PO DAILY [facility] Stop: 09/25/17 08:59 Last Admin: 07/28/17 08:46 Dose: 81 mg Atorvastatin Calcium (Lipitor) 20 mg PO HS EV PRN Reason: Protocol Stop: 09/24/17 20:59 Last Admin: 07/28/17 20:39 Dose: 20 mg Carvedilol (Coreg) 3.125 mg PO BID [facility] Stop: 09/25/17 08:59 Last Admin: 07/28/17 16:27 Dose: Not Given Donepezil HCl (Aricept) 5 mg PO HS [facility] Stop: 09/25/17 20:59 Last Admin: 07/28/17 20:39 Dose: 5 mg Folic Acid (Folate) 1 mg PO DAILY [facility] Stop: 09/25/17 08:59 Last Admin: 07/28/17 08:45 Dose: 1 mg Furosemide (Lasix) 20 mg PO DAILY [facility] Stop: 09/25/17 08:59 Last Admin: 07/28/17 08:46 Dose: Not Given Lorazepam (Ativan) 0.5 mg PO Q6HR PRN; Protocol PRN Reason: Agitation Stop: 09/24/17 21:26 Last Admin: 07/28/17 13:41 Dose: 0.5 mg Tamsulosin HCl (Flomax) 0.4 mg PO BID [facility] Stop: 09/25/17 08:59 Last Admin: 07/28/17 16:46 Dose: 0.4 mg Warfarin Sodium (Coumadin Per Pharmacy) 1 ea [facility] PRN PRN; Protocol PRN Reason: RX MONITORING Stop: 09/24/17 18:52 Warfarin Sodium (Coumadin) 1 mg PO C [facility] Stop: 09/25/17 12:59 Last Admin: 07/28/17 13:41 Dose: 1 mg General: weak, demented HEENT: NC/AT, PERRLA, EOMI, anicteric sclerae, throat clear Neck: Supple, No JVD, No thyromegaly, No LAD Lungs: CTAB Cardiovascular: RRR, Normal S1, Normal S2, without murmur Abdomen: soft, non-tender, non-distended Extremities: clear Neurological: no change Internal Medicine Assmt/Plan - Assessment Assessment: 1.CHF. 2.CAD. 3.DEMENTIA. - Plan Plan: CONTINUE ON CURRENT MEDICATION AND DIET.
[2017-07-29] MEDS: Aspirin 81mg Chewable Tab PO SCH (09:30)
[2017-07-29 10:29] LABS: % BASOPHILS 1.8 % (0.0-2.0); % EOSINOPHILS 2.9 % (0.0-5.0); % LYMPHOCYTES 20.5 % (20.0-50.0); % MONOCYTES 10.5 % (2.0-10.0); % NEUTROPHILS 64.3 % (40.0-80.0); MEAN CELL VOLUME 84.4 fl (80-99); MEAN CORPUSCULAR HEMOGLOBIN 28.1 pg (27.0-31.0); MEAN CORPUSCULAR HGB CONC 33.3 pg (28.0-36.0); MEAN PLATELET VOLUME 10.9 fl; NEUTROPHILE ABSOLUTE 3.9 Th/cmm (1.8-8.0); PLATELET COUNT 72 Th/cmm (150-400); RED BLOOD COUNT 4.62 Mil/cmm (3.80-5.80); RED CELL DISTRIBUTION WIDTH 14.9 % (11.5-20.0); WHITE BLOOD COUNT 6.1 Th/cmm (4.8-10.8)
[2017-07-29 10:38] LABS: INR 1.54 (0.5-1.4); PROTHROMBIN TIME (TEST) 16.4 SECONDS (9.5-11.5)
--- NOTE | 2017-07-29 19:07 | Internal Medicine Prog Note ---
Internal Medicine Subjective - Subjective Service Date: 07/29/17 Patient seen and examined:: without staff Patient is:: awake, non-verbal, in bed, confused Per staff patient has:: no adverse event Internal Medicine Objective - Results Result Diagrams: 07/29/17 10:15 Recent Labs: Laboratory Last Values WBC 6.1 Th/cmm (4.8-10.8) 07/29/17 10:15 RBC 4.62 Mil/cmm (3.80-5.80) 07/29/17 10:15 Hgb 13.0 gm/dL (12-16) 07/29/17 10:15 Hct 39.0 % (41.0-60) L 07/29/17 10:15 MCV 84.4 fl (80-99) 07/29/17 10:15 MCH 28.1 pg (27.0-31.0) 07/29/17 10:15 MCHC Differential 33.3 pg (28.0-36.0) 07/29/17 10:15 RDW 14.9 % (11.5-20.0) 07/29/17 10:15 Plt Count 72 Th/cmm (150-400) L 07/29/17 10:15 MPV 10.9 fl 07/29/17 10:15 Neutrophils % 64.3 % (40.0-80.0) 07/29/17 10:15 Lymphocytes % 20.5 % (20.0-50.0) 07/29/17 10:15 Monocytes % 10.5 % (2.0-10.0) H 07/29/17 10:15 Eosinophils % 2.9 % (0.0-5.0) 07/29/17 10:15 Basophils % 1.8 % (0.0-2.0) 07/29/17 10:15 PT 16.4 SECONDS (9.5-11.5) H 07/29/17 10:15 INR 1.54 (0.5-1.4) H 07/29/17 10:15 - Physical Exam Vitals and I&O: Vital Signs Temp 97.6 F 07/29/17 14:00 Pulse 64 07/29/17 16:58 Resp 18 07/29/17 14:00 BP 129/54 07/29/17 16:58 Pulse Ox 98 07/29/17 14:00 Intake & Output 07/29/17 07/29/17 07/30/17 06:59 18:59 06:59 Intake Total 120 1000 Balance 120 1000 Intake: Oral 120 1000 Other: # Voids 3 4 # Bowel Movements 1 Active Medications: Current Medications Acetaminophen (Tylenol) 650 mg PO Q4H PRN PRN Reason: Pain (Mild) Stop: 09/24/17 18:50 Amiodarone HCl (Cordarone) 200 mg PO DAILY [facility] Stop: 09/25/17 08:59 Last Admin: 07/29/17 09:30 Dose: Not Given Aspirin (Aspirin Chewable) 81 mg PO DAILY [facility] Stop: 09/25/17 08:59 Last Admin: 07/29/17 09:30 Dose: 81 mg Atorvastatin Calcium (Lipitor) 20 mg PO HS [facility] PRN Reason: Protocol Stop: 09/24/17 20:59 Last Admin: 07/28/17 20:39 Dose: 20 mg Carvedilol (Coreg) 3.125 mg PO BID [facility] Stop: 09/25/17 08:59 Last Admin: 07/29/17 16:58 Dose: Not Given Donepezil HCl (Aricept) 5 mg PO HS [facility] Stop: 09/25/17 20:59 Last Admin: 07/28/17 20:39 Dose: 5 mg Folic Acid (Folate) 1 mg PO DAILY [facility] Stop: 09/25/17 08:59 Last Admin: 07/29/17 09:30 Dose: 1 mg Furosemide (Lasix) 20 mg PO DAILY [facility] Stop: 09/25/17 08:59 Last Admin: 07/29/17 09:30 Dose: Not Given Lorazepam (Ativan) 0.5 mg PO Q6HR PRN; Protocol PRN Reason: Agitation Stop: 09/24/17 21:26 Last Admin: 07/28/17 13:41 Dose: 0.5 mg Tamsulosin HCl (Flomax) 0.4 mg PO BID [facility] Stop: 09/25/17 08:59 Last Admin: 07/29/17 17:04 Dose: 0.4 mg General: weak, demented HEENT: NC/AT, PERRLA, EOMI, anicteric sclerae, throat clear Neck: Supple, No JVD, No thyromegaly, No LAD Lungs: CTAB Cardiovascular: RRR, Normal S1, Normal S2, without murmur Abdomen: soft, non-tender, non-distended Extremities: clear Neurological: no change Internal Medicine Assmt/Plan - Assessment Assessment: 1.CHF. 2.CAD. 3.DEMENTIA. - Plan Plan: CONTINUE ON CURRENT MEDICATION AND DIET.
[2017-07-29] MEDS: Atorvastatin Calcium 10 MG TAB PO SCH (21:03)
--- NOTE | 2017-07-30 07:48 | Progress Notes ---
DATE: 07/29/2017 Case was discussed with staff of the patient, reviewed records. The patient continues to be confused and demented. Continues to have poor insight. Continues to be unable to participate in meaningful conversation or make safe plan for self-care. He is already on Aricept and also he gets Ativan as needed. He continues to have poor insight. Unable to make safe plan for self-care. He was taken off the warfarin. He is also on Flomax. He continues to have poor insight. Unable to participate in meaningful conversation. We will continue with the patient in group therapy, milieu therapy, adjust the medication as needed. JOB# [id number]
[2017-07-30] MEDS: Aspirin 81mg Chewable Tab PO SCH (09:45)
--- NOTE | 2017-07-30 13:50 | Internal Medicine Prog Note ---
Internal Medicine Subjective - Subjective Service Date: 07/30/17 Patient seen and examined:: without staff Patient is:: awake, non-verbal, in bed, confused Per staff patient has:: no adverse event Internal Medicine Objective - Results Result Diagrams: 07/29/17 10:15 Recent Labs: Laboratory Last Values WBC 6.1 Th/cmm (4.8-10.8) 07/29/17 10:15 RBC 4.62 Mil/cmm (3.80-5.80) 07/29/17 10:15 Hgb 13.0 gm/dL (12-16) 07/29/17 10:15 Hct 39.0 % (41.0-60) L 07/29/17 10:15 MCV 84.4 fl (80-99) 07/29/17 10:15 MCH 28.1 pg (27.0-31.0) 07/29/17 10:15 MCHC Differential 33.3 pg (28.0-36.0) 07/29/17 10:15 RDW 14.9 % (11.5-20.0) 07/29/17 10:15 Plt Count 72 Th/cmm (150-400) L 07/29/17 10:15 MPV 10.9 fl 07/29/17 10:15 Neutrophils % 64.3 % (40.0-80.0) 07/29/17 10:15 Lymphocytes % 20.5 % (20.0-50.0) 07/29/17 10:15 Monocytes % 10.5 % (2.0-10.0) H 07/29/17 10:15 Eosinophils % 2.9 % (0.0-5.0) 07/29/17 10:15 Basophils % 1.8 % (0.0-2.0) 07/29/17 10:15 PT 16.4 SECONDS (9.5-11.5) H 07/29/17 10:15 INR 1.54 (0.5-1.4) H 07/29/17 10:15 - Physical Exam Vitals and I&O: Vital Signs Temp 97.6 F 07/30/17 06:43 Pulse 68 07/30/17 09:44 Resp 19 07/30/17 06:43 BP 121/76 07/30/17 09:44 Pulse Ox 97 07/30/17 06:43 Intake & Output 07/29/17 07/30/17 07/30/17 18:59 06:59 18:59 Intake Total 1000 120 Balance 1000 120 Intake: Oral 1000 120 Other: # Voids 4 3 # Bowel Movements 1 Active Medications: Current Medications Acetaminophen (Tylenol) 650 mg PO Q4H PRN PRN Reason: Pain (Mild) Stop: 09/24/17 18:50 Amiodarone HCl (Cordarone) 200 mg PO DAILY [facility] Stop: 09/25/17 08:59 Last Admin: 07/30/17 09:43 Dose: 200 mg Aspirin (Aspirin Chewable) 81 mg PO DAILY [facility] Stop: 09/25/17 08:59 Last Admin: 07/30/17 09:45 Dose: 81 mg Atorvastatin Calcium (Lipitor) 20 mg PO HS [facility] PRN Reason: Protocol Stop: 09/24/17 20:59 Last Admin: 07/29/17 21:03 Dose: 20 mg Carvedilol (Coreg) 3.125 mg PO BID [facility] Stop: 09/25/17 08:59 Last Admin: 07/30/17 09:44 Dose: 3.125 mg Donepezil HCl (Aricept) 5 mg PO HS [facility] Stop: 09/25/17 20:59 Last Admin: 07/29/17 21:02 Dose: 5 mg Folic Acid (Folate) 1 mg PO DAILY [facility] Stop: 09/25/17 08:59 Last Admin: 07/30/17 09:45 Dose: 1 mg Furosemide (Lasix) 20 mg PO DAILY [facility] Stop: 09/25/17 08:59 Last Admin: 07/30/17 09:44 Dose: 20 mg Lorazepam (Ativan) 0.5 mg PO Q6HR PRN; Protocol PRN Reason: Agitation Stop: 09/24/17 21:26 Last Admin: 07/28/17 13:41 Dose: 0.5 mg Risperidone (Risperdal) 0.25 mg PO BID [facility] PRN Reason: Protocol Stop: 09/28/17 16:59 Tamsulosin HCl (Flomax) 0.4 mg PO BID [facility] Stop: 09/25/17 08:59 Last Admin: 07/30/17 09:45 Dose: 0.4 mg General: weak, demented HEENT: NC/AT, PERRLA, EOMI, anicteric sclerae, throat clear Neck: Supple, No JVD, No thyromegaly, No LAD Lungs: CTAB Cardiovascular: RRR, Normal S1, Normal S2, without murmur Abdomen: soft, non-tender, non-distended Extremities: clear Neurological: no change Internal Medicine Assmt/Plan - Assessment Assessment: 1.CHF. 2.CAD. 3.DEMENTIA. - Plan Plan: CONTINUE ON CURRENT MEDICATION AND DIET.
[2017-07-30 14:56] LABS: INR 1.53 (0.5-1.4); PROTHROMBIN TIME (TEST) 16.2 SECONDS (9.5-11.5)
[2017-07-30 16:33] LABS: % BASOPHILS 0.5 % (0.0-2.0); % EOSINOPHILS 3.2 % (0.0-5.0); % LYMPHOCYTES 24.4 % (20.0-50.0); % MONOCYTES 11.5 % (2.0-10.0); % NEUTROPHILS 60.4 % (40.0-80.0); HEMATOCRIT 38.7 % (41.0-60); HEMOGLOBIN 12.7 gm/dL (12-16); MEAN CELL VOLUME 84.7 fl (80-99); MEAN CORPUSCULAR HEMOGLOBIN 27.9 pg (27.0-31.0); MEAN PLATELET VOLUME 12.4 fl; NEUTROPHILE ABSOLUTE 3.3 Th/cmm (1.8-8.0); RED BLOOD COUNT 4.56 Mil/cmm (3.80-5.80); RED CELL DISTRIBUTION WIDTH 14.4 % (11.5-20.0); WHITE BLOOD COUNT 5.4 Th/cmm (4.8-10.8)
[2017-07-30 16:34] LABS: PLATELET COUNT 95 Th/cmm (150-400)
--- NOTE | 2017-07-30 19:09 | History & Physical ---
ADMIT DATE: 07/30/2017 REFERRING PHYSICIAN: Beckie Cabrera M.D. REASON FOR CONSULTATION: Thrombocytopenia. 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 He also had coronary artery disease, cardiomyopathy, and dementia. The patient was found to have a platelet count of 70,000, therefore, I was asked to evaluate. All the records are not available to compare. The duration of thrombocytopenia is unknown. PAST MEDICAL HISTORY: Dementia, coronary artery disease. PAST SURGICAL HISTORY: None. MEDICATIONS: Reviewed. SOCIAL HISTORY: No smoking or drinking. PHYSICAL EXAMINATION: GENERAL: The patient is awake, not in distress, confused. VITAL SIGNS: Stable. HEENT: Atraumatic, no peripheral ____ lymphadenopathy. CHEST: Equal air entry. ABDOMEN: Soft. No organomegaly. EXTREMITIES: No edema. NERVOUS SYSTEM: No focal deficits. LABORATORY DATA: White count 6.1, hemoglobin 13, platelet count of 72. INR 1.53. ASSESSMENT: Coronary artery disease; ischemic cardiomyopathy; thrombocytopenia, the etiology and duration are unclear. I will obtain spleen ultrasound, B12 and folate level, DEBO and repeat platelet count. The differential diagnosis includes immune thrombocytopenia of platelet destruction, spleen or nutrition deficiency by B12 or folate, or mild dysplastic syndrome. Thank you Dr. Cabrera for the opportunity to participate in the care of this patient. JOB# [id number]
[2017-07-30] MEDS: Atorvastatin Calcium 10 MG TAB PO SCH (21:46)
--- NOTE | 2017-07-30 23:04 | Progress Notes ---
DATE: 07/30/2017 Case was discussed with staff of the patient, reviewed records. The patient is reported by the staff to be very confused, responding to internal stimuli, unable to make safe plan for self-care or carry on a conversation, laughing inappropriately at times. I did initiate the patient on Aricept and I will be initiating Risperdal on the patient and so far no side effects, no sedation, no nausea, and I will be initiating Risperdal small dose of 0.25 mg. I discussed side effects with the patient. We will continue to work with the patient in group therapy, milieu therapy, adjust the medication as needed. JOB# [id number]
[2017-07-31 08:50] LABS: INR 1.49 (0.5-1.4); PROTHROMBIN TIME (TEST) 15.8 SECONDS (9.5-11.5)
[2017-07-31] MEDS: Aspirin 81mg Chewable Tab PO SCH (11:02)
[2017-07-31 12:10] LABS: FOLIC ACID >20.0 ng/mL (>3.0)
--- NOTE | 2017-07-31 15:02 | General Progress Note ---
Subjective - Review of Systems Service Date: 07/31/17 Objective - Results Result Diagrams: 07/30/17 16:20 Recent Labs: Laboratory Last Values WBC 5.4 Th/cmm (4.8-10.8) 07/30/17 16:20 RBC 4.56 Mil/cmm (3.80-5.80) 07/30/17 16:20 Hgb 12.7 gm/dL (12-16) 07/30/17 16:20 Hct 38.7 % (41.0-60) L 07/30/17 16:20 MCV 84.7 fl (80-99) 07/30/17 16:20 MCH 27.9 pg (27.0-31.0) 07/30/17 16:20 MCHC Differential 33.0 pg (28.0-36.0) 07/30/17 16:20 RDW 14.4 % (11.5-20.0) 07/30/17 16:20 Plt Count 95 Th/cmm (150-400) L D 07/30/17 16:20 MPV 12.4 fl 07/30/17 16:20 Neutrophils % 60.4 % (40.0-80.0) 07/30/17 16:20 Lymphocytes % 24.4 % (20.0-50.0) 07/30/17 16:20 Monocytes % 11.5 % (2.0-10.0) H 07/30/17 16:20 Eosinophils % 3.2 % (0.0-5.0) 07/30/17 16:20 Basophils % 0.5 % (0.0-2.0) 07/30/17 16:20 PT 15.8 SECONDS (9.5-11.5) H 07/31/17 08:25 INR 1.49 (0.5-1.4) H 07/31/17 08:25 Vitamin B12 475 pg/mL (211-946) 07/30/17 16:20 Folic Acid >20.0 ng/mL (>3.0) 07/30/17 16:20 - Physical Exam Vitals and I&O: Vital Signs Temp 97.6 F 07/30/17 06:43 Pulse 66 07/31/17 11:02 Resp 19 07/30/17 06:43 BP 104/55 07/31/17 11:02 Pulse Ox 97 07/30/17 06:43 Intake & Output 07/30/17 07/31/17 07/31/17 18:59 06:59 18:59 Intake Total 1000 120 Balance 1000 120 Intake: Oral 1000 120 Other: # Voids 4 3 # Bowel Movements 1 Active Medications: Current Medications Acetaminophen (Tylenol) 650 mg PO Q4H PRN PRN Reason: Pain (Mild) Stop: 09/24/17 18:50 Amiodarone HCl (Cordarone) 200 mg PO DAILY [facility] Stop: 09/25/17 08:59 Last Admin: 07/31/17 11:02 Dose: Not Given Aspirin (Aspirin Chewable) 81 mg PO DAILY [facility] Stop: 09/25/17 08:59 Last Admin: 07/31/17 11:02 Dose: 81 mg Atorvastatin Calcium (Lipitor) 20 mg PO HS [facility] PRN Reason: Protocol Stop: 09/24/17 20:59 Last Admin: 07/30/17 21:46 Dose: 20 mg Carvedilol (Coreg) 3.125 mg PO BID [facility] Stop: 09/25/17 08:59 Last Admin: 07/31/17 11:02 Dose: Not Given Donepezil HCl (Aricept) 5 mg PO HS [facility] Stop: 09/25/17 20:59 Last Admin: 07/30/17 21:46 Dose: 5 mg Folic Acid (Folate) 1 mg PO DAILY [facility] Stop: 09/25/17 08:59 Last Admin: 07/31/17 11:02 Dose: Not Given Furosemide (Lasix) 20 mg PO DAILY [facility] Stop: 09/25/17 08:59 Last Admin: 07/31/17 11:02 Dose: Not Given Lorazepam (Ativan) 0.5 mg PO Q6HR PRN; Protocol PRN Reason: Agitation Stop: 09/24/17 21:26 Last Admin: 07/30/17 21:46 Dose: 0.5 mg Risperidone (Risperdal) 0.25 mg PO BID [facility] PRN Reason: Protocol Stop: 09/28/17 16:59 Last Admin: 07/31/17 11:01 Dose: 0.25 mg Tamsulosin HCl (Flomax) 0.4 mg PO BID [facility] Stop: 09/25/17 08:59 Last Admin: 07/31/17 11:03 Dose: Not Given Assessment/Plan - Assessment Assessment: * Thrombocytopenia improving * Dementia * Psychosis follow US report B12, folate normal Nutritional Asmnt/Malnutr-PDOC - Dietary Evaluation Malnutrition Findings (Please click <Entered> for more info): Nutritional Asmnt/Malnutrition Start: 07/31/17 10: 12 Text: Status: Complete Freq: Document 07/31/17 10:12 SUKHDEV (Rec: 07/31/17 10:16 SUKHDEV REID- [email or web address]) Nutritional Asmnt/Malnutrition Patient General Information Nutritional Screening Moderate Risk Screening Diagnosis Psychosisi nos Pertinent Medical Hx/Surgical Hx denebtua, CAD, ischemic cardiomyopathy, HTN, hypercholesterolemia, prostate hypertophy Subjective Information Pt sleep in bed at time of visit Current Diet Order/ Nutrition Support regular Patient / S.O Not Indicated Pertinent Medications lipitor, folate, lasix Pertinent Labs reviewed Nutritional Hx/Data Height 1.65 m Height (Calculated Centimeters) 165.1 Current Weight (lbs) 63.049 kg Weight (Calculated Kilograms) 63.0 Weight (Calculated Grams) 43930.3 Recent Weight Change No Weight Status Approriate GI Symptoms GI Symptoms None Food Allergies No Cultural/Ethnic/Christianity Belief unable to obtain Usual diet at home unable to obtain Skin Integrity/Comment: manolo score 12; intact Current %PO Good (75-100%) Estimated Nutritional Goals BEE in Kcals: Using Current wt Calories/Kcals/Kg 25-30kcals/kg Kcals Calculated 1575-1890kcals/day Protein: Using Current wt Protein g/kg/kg Protein Calculated 63g/day Fluid: ml 1575-1890ml/day (1ml/kcal) Nutritional Problem 1. Problem Problem No nutrition diagnosis at this time Intervention/Recommendation Comments Recommend continuing Regular diet Expected Outcomes/Goals Expected Outcomes/Goals PO intake >75% of meals
[2017-07-31] MEDS: Atorvastatin Calcium 10 MG TAB PO SCH (21:50)
--- NOTE | 2017-07-31 22:12 | Progress Notes ---
DATE: SUBJECTIVE: The patient was seen and evaluated. The patient's chart reviewed. Overnight nursing staff reported the patient continues to be verbally aggressive, he targets people and he starts yelling and screaming with no trigger. Today on [id number] evaluation, the patient easily ____, easily agitated, disorganized, easily irritable and minimally interactive. Very minimal conversation and unable to formulate a safe plan outside the structured environment. MENTAL STATUS EXAMINATION: Easily irritable, easily agitated, disorganized. ASSESSMENT AND PLAN: The patient is an 86-year-old male who continues to be easily disorganized, who is observed to be responding to internal stimuli. Recently risperidone was initiated a small dose of 0.25 mg without complications or side effects. We will continue with the current medication regimen, starting to target the patient, still aggressive and his psychotic symptoms. We will continue to monitor and evaluate. Primary psychiatrist's treatment plan with improved milieu therapy and adjust medications as needed. JOB# [id number]
[2017-08-01 06:35] LABS: % BASOPHILS 0.5 % (0.0-2.0); % EOSINOPHILS 3.5 % (0.0-5.0); % LYMPHOCYTES 31.5 % (20.0-50.0); % MONOCYTES 13.1 % (2.0-10.0); % NEUTROPHILS 51.4 % (40.0-80.0); HEMATOCRIT 38.4 % (41.0-60); HEMOGLOBIN 12.7 gm/dL (12-16); MEAN CELL VOLUME 84.8 fl (80-99); MEAN CORPUSCULAR HEMOGLOBIN 28.1 pg (27.0-31.0); MEAN CORPUSCULAR HGB CONC 33.2 pg (28.0-36.0); MEAN PLATELET VOLUME 10.5 fl; NEUTROPHILE ABSOLUTE 3.2 Th/cmm (1.8-8.0); RED BLOOD COUNT 4.53 Mil/cmm (3.80-5.80); RED CELL DISTRIBUTION WIDTH 14.6 % (11.5-20.0); WHITE BLOOD COUNT 6.1 Th/cmm (4.8-10.8)
[2017-08-01 06:39] LABS: PLATELET COUNT 77 Th/cmm (150-400)
[2017-08-01 07:17] LABS: INR 1.27 (0.5-1.4); PROTHROMBIN TIME (TEST) 13.4 SECONDS (9.5-11.5)
--- NOTE | 2017-08-01 08:17 | Diagnostic Imaging Report ---
Exam: Ultrasound examination of the abdomen HISTORY: Splenomegaly. Findings: Real-time ultrasound examination of the abdomen performed multiple planes. The study demonstrates normal echogenicity liver parenchyma. The gallbladder demonstrates a single calculus in most dependent portion of gallbladder consistent with cholelithiasis. The common bile duct measures 4 mm Pancreas poorly seen. There is no evidence of obstructive uropathy or nephrolithiasis. The right kidney measures 10.7 x 5.6 x 4.7 cm. Left kidney measures 10.2 x 5.2 x 5.5 cm. The spleen measures 10.0 cm in longest diameter. IMPRESSION: 1. Cholelithiasis 1.3 cm calculus in most dependent portion of gallbladder 2. Normal appearance of the spleen measuring 10 cm. 3. The study is limited due to patient poor cooperation.
[2017-08-01] MEDS: Aspirin 81mg Chewable Tab PO SCH (09:13)
[2017-08-01] MEDS ORDERED: Magnesium Hydroxide (MOM) 30 mL UDC PO PRN (15:32)
--- NOTE | 2017-08-01 20:50 | General Progress Note ---
Subjective - Review of Systems Service Date: 08/01/17 Subjective: resting comfortably no distress Objective - Results Result Diagrams: 08/01/17 06:16 Recent Labs: Laboratory Last Values WBC 6.1 Th/cmm (4.8-10.8) 08/01/17 06:16 RBC 4.53 Mil/cmm (3.80-5.80) 08/01/17 06:16 Hgb 12.7 gm/dL (12-16) 08/01/17 06:16 Hct 38.4 % (41.0-60) L 08/01/17 06:16 MCV 84.8 fl (80-99) 08/01/17 06:16 MCH 28.1 pg (27.0-31.0) 08/01/17 06:16 MCHC Differential 33.2 pg (28.0-36.0) 08/01/17 06:16 RDW 14.6 % (11.5-20.0) 08/01/17 06:16 Plt Count 77 Th/cmm (150-400) L 08/01/17 06:16 MPV 10.5 fl 08/01/17 06:16 Neutrophils % 51.4 % (40.0-80.0) 08/01/17 06:16 Lymphocytes % 31.5 % (20.0-50.0) 08/01/17 06:16 Monocytes % 13.1 % (2.0-10.0) H 08/01/17 06:16 Eosinophils % 3.5 % (0.0-5.0) 08/01/17 06:16 Basophils % 0.5 % (0.0-2.0) 08/01/17 06:16 PT 13.4 SECONDS (9.5-11.5) H 08/01/17 06:16 INR 1.27 (0.5-1.4) 08/01/17 06:16 Vitamin B12 475 pg/mL (211-946) 07/30/17 16:20 Folic Acid >20.0 ng/mL (>3.0) 07/30/17 16:20 - Physical Exam Vitals and I&O: Vital Signs Temp 98 F 08/01/17 20:17 Pulse 67 08/01/17 20:17 Resp 18 08/01/17 20:17 BP 92/52 08/01/17 20:17 Pulse Ox 97 08/01/17 20:17 Intake & Output 08/01/17 08/01/17 08/02/17 06:59 18:59 06:59 Intake Total 240 950 240 Balance 240 950 240 Intake: Oral 240 950 240 Other: # Voids 1 5 1 # Bowel Movements 1 Stool Characteristics Hard Active Medications: Current Medications Acetaminophen (Tylenol) 650 mg PO Q4H PRN PRN Reason: Pain (Mild) Stop: 09/24/17 18:50 Amiodarone HCl (Cordarone) 200 mg PO DAILY [facility] Stop: 09/25/17 08:59 Last Admin: 08/01/17 09:13 Dose: 200 mg Aspirin (Aspirin Chewable) 81 mg PO DAILY [facility] Stop: 09/25/17 08:59 Last Admin: 08/01/17 09:13 Dose: 81 mg Atorvastatin Calcium (Lipitor) 20 mg PO HS [facility] PRN Reason: Protocol Stop: 09/24/17 20:59 Last Admin: 07/31/17 21:50 Dose: 20 mg Carvedilol (Coreg) 3.125 mg PO BID [facility] Stop: 09/25/17 08:59 Last Admin: 08/01/17 16:51 Dose: Not Given Donepezil HCl (Aricept) 5 mg PO HS [facility] Stop: 09/25/17 20:59 Last Admin: 07/31/17 21:50 Dose: 5 mg Folic Acid (Folate) 1 mg PO DAILY [facility] Stop: 09/25/17 08:59 Last Admin: 08/01/17 09:13 Dose: 1 mg Furosemide (Lasix) 20 mg PO DAILY [facility] Stop: 09/25/17 08:59 Last Admin: 08/01/17 09:11 Dose: 20 mg Lorazepam (Ativan) 0.5 mg PO Q6HR PRN; Protocol PRN Reason: Agitation Stop: 09/24/17 21:26 Last Admin: 07/30/17 21:46 Dose: 0.5 mg Magnesium Hydroxide (Milk Of Magnesia) 30 ml PO DAILY PRN PRN Reason: Constipation Stop: 09/30/17 15:31 Last Admin: 08/01/17 18:34 Dose: 30 ml Risperidone (Risperdal) 0.25 mg PO BID [facility] PRN Reason: Protocol Stop: 09/28/17 16:59 Last Admin: 08/01/17 16:49 Dose: 0.25 mg Tamsulosin HCl (Flomax) 0.4 mg PO BID [facility] Stop: 09/25/17 08:59 Last Admin: 08/01/17 16:52 Dose: 0.4 mg General: Alert, No acute distress HEENT: Atraumatic, PERRLA, EOMI Neck: Supple, JVD Cardiovascular: Regular rate, Normal S1, Normal S2 Lungs: Clear to auscultation Abdomen: Bowel sounds, Soft Assessment/Plan - Assessment Assessment: 1.CHF. 2.CAD. 3.DEMENTIA. - Plan Plan: cont current treatment Nutritional Asmnt/Malnutr-PDOC - Dietary Evaluation Malnutrition Findings (Please click <Entered> for more info): Nutritional Asmnt/Malnutrition Start: 07/31/17 10: 12 Text: Status: Complete Freq: Document 07/31/17 10:12 SUKHDEV (Rec: 07/31/17 10:16 [email or web address] [email or web address]- [email or web address]) Nutritional Asmnt/Malnutrition Patient General Information Nutritional Screening Moderate Risk Screening Diagnosis Psychosisi nos Pertinent Medical Hx/Surgical Hx denebtua, CAD, ischemic cardiomyopathy, HTN, hypercholesterolemia, prostate hypertophy Subjective Information Pt sleep in bed at time of visit Current Diet Order/ Nutrition Support regular Patient / S.O Not Indicated Pertinent Medications lipitor, folate, lasix Pertinent Labs reviewed Nutritional Hx/Data Height 1.65 m Height (Calculated Centimeters) 165.1 Current Weight (lbs) 63.049 kg Weight (Calculated Kilograms) 63.0 Weight (Calculated Grams) 72442.3 Recent Weight Change No Weight Status Approriate GI Symptoms GI Symptoms None Food Allergies No Cultural/Ethnic/Oriental Orthodox Belief unable to obtain Usual diet at home unable to obtain Skin Integrity/Comment: manolo score 12; intact Current %PO Good (75-100%) Estimated Nutritional Goals BEE in Kcals: Using Current wt Calories/Kcals/Kg 25-30kcals/kg Kcals Calculated 1575-1890kcals/day Protein: Using Current wt Protein g/kg/kg Protein Calculated 63g/day Fluid: ml 1575-1890ml/day (1ml/kcal) Nutritional Problem 1. Problem Problem No nutrition diagnosis at this time Intervention/Recommendation Comments Recommend continuing Regular diet Expected Outcomes/Goals Expected Outcomes/Goals PO intake >75% of meals
[2017-08-01] MEDS: Atorvastatin Calcium 10 MG TAB PO SCH (21:10)
[2017-08-02 07:19] LABS: INR 1.25 (0.5-1.4); PROTHROMBIN TIME (TEST) 13.1 SECONDS (9.5-11.5)
[2017-08-02] MEDS: Aspirin 81mg Chewable Tab PO SCH (09:18)
--- NOTE | 2017-08-02 11:25 | General Progress Note ---
Subjective - Review of Systems Service Date: 08/02/17 Objective - Results Result Diagrams: 08/01/17 06:16 Recent Labs: Laboratory Last Values WBC 6.1 Th/cmm (4.8-10.8) 08/01/17 06:16 RBC 4.53 Mil/cmm (3.80-5.80) 08/01/17 06:16 Hgb 12.7 gm/dL (12-16) 08/01/17 06:16 Hct 38.4 % (41.0-60) L 08/01/17 06:16 MCV 84.8 fl (80-99) 08/01/17 06:16 MCH 28.1 pg (27.0-31.0) 08/01/17 06:16 MCHC Differential 33.2 pg (28.0-36.0) 08/01/17 06:16 RDW 14.6 % (11.5-20.0) 08/01/17 06:16 Plt Count 77 Th/cmm (150-400) L 08/01/17 06:16 MPV 10.5 fl 08/01/17 06:16 Neutrophils % 51.4 % (40.0-80.0) 08/01/17 06:16 Lymphocytes % 31.5 % (20.0-50.0) 08/01/17 06:16 Monocytes % 13.1 % (2.0-10.0) H 08/01/17 06:16 Eosinophils % 3.5 % (0.0-5.0) 08/01/17 06:16 Basophils % 0.5 % (0.0-2.0) 08/01/17 06:16 PT 13.1 SECONDS (9.5-11.5) H 08/02/17 06:50 INR 1.25 (0.5-1.4) 08/02/17 06:50 Vitamin B12 475 pg/mL (211-946) 07/30/17 16:20 Folic Acid >20.0 ng/mL (>3.0) 07/30/17 16:20 - Physical Exam Vitals and I&O: Vital Signs Temp 97.9 F 08/02/17 06:32 Pulse 55 08/02/17 09:17 Resp 20 08/02/17 06:32 BP 126/57 08/02/17 09:28 Pulse Ox 99 08/02/17 06:32 Intake & Output 08/01/17 08/02/17 08/02/17 18:59 06:59 18:59 Intake Total 950 240 Balance 950 240 Intake: Oral 950 240 Other: # Voids 5 3 # Bowel Movements 1 0 Stool Characteristics Hard Active Medications: Current Medications Acetaminophen (Tylenol) 650 mg PO Q4H PRN PRN Reason: Pain (Mild) Stop: 09/24/17 18:50 Amiodarone HCl (Cordarone) 200 mg PO DAILY [facility] Stop: 09/25/17 08:59 Last Admin: 08/02/17 09:13 Dose: Not Given Aspirin (Aspirin Chewable) 81 mg PO DAILY [facility] Stop: 09/25/17 08:59 Last Admin: 08/02/17 09:18 Dose: 81 mg Atorvastatin Calcium (Lipitor) 20 mg PO HS EV PRN Reason: Protocol Stop: 09/24/17 20:59 Last Admin: 08/01/17 21:10 Dose: 20 mg Carvedilol (Coreg) 3.125 mg PO BID [facility] Stop: 09/25/17 08:59 Last Admin: 08/02/17 09:17 Dose: 3.125 mg Donepezil HCl (Aricept) 5 mg PO HS EV Stop: 09/25/17 20:59 Last Admin: 08/01/17 21:10 Dose: 5 mg Folic Acid (Folate) 1 mg PO DAILY [facility] Stop: 09/25/17 08:59 Last Admin: 08/02/17 09:26 Dose: 1 mg Furosemide (Lasix) 20 mg PO DAILY [facility] Stop: 09/25/17 08:59 Last Admin: 08/02/17 09:28 Dose: Not Given Lorazepam (Ativan) 0.5 mg PO Q6HR PRN; Protocol PRN Reason: Agitation Stop: 09/24/17 21:26 Last Admin: 07/30/17 21:46 Dose: 0.5 mg Magnesium Hydroxide (Milk Of Magnesia) 30 ml PO DAILY PRN PRN Reason: Constipation Stop: 09/30/17 15:31 Last Admin: 08/01/17 18:34 Dose: 30 ml Risperidone (Risperdal) 0.25 mg PO BID EV PRN Reason: Protocol Stop: 09/28/17 16:59 Last Admin: 08/02/17 09:13 Dose: 0.25 mg Tamsulosin HCl (Flomax) 0.4 mg PO BID [facility] Stop: 09/25/17 08:59 Last Admin: 08/02/17 09:18 Dose: 0.4 mg General: Alert, No acute distress HEENT: Atraumatic, PERRLA, EOMI Neck: Supple, JVD Cardiovascular: Regular rate, Normal S1, Normal S2 Lungs: Clear to auscultation Abdomen: Bowel sounds, Soft Assessment/Plan - Assessment Assessment: * Thrombocytopenia stable, 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 * Dementia * Psychosis follow US report B12, folate normal normal spleen size on US monitor plt for now Nutritional Asmnt/Malnutr-PDOC - Dietary Evaluation Malnutrition Findings (Please click <Entered> for more info): Nutritional Asmnt/Malnutrition Start: 07/31/17 10: 12 Text: Status: Complete Freq: Document 07/31/17 10:12 SUKHDEV (Rec: 07/31/17 10:16 SUKHDEV REID- [email or web address]) Nutritional Asmnt/Malnutrition Patient General Information Nutritional Screening Moderate Risk Screening Diagnosis Psychosisi nos Pertinent Medical Hx/Surgical Hx denebtua, CAD, ischemic cardiomyopathy, HTN, hypercholesterolemia, prostate hypertophy Subjective Information Pt sleep in bed at time of visit Current Diet Order/ Nutrition Support regular Patient / S.O Not Indicated Pertinent Medications lipitor, folate, lasix Pertinent Labs reviewed Nutritional Hx/Data Height 1.65 m Height (Calculated Centimeters) 165.1 Current Weight (lbs) 63.049 kg Weight (Calculated Kilograms) 63.0 Weight (Calculated Grams) 91137.3 Recent Weight Change No Weight Status Approriate GI Symptoms GI Symptoms None Food Allergies No Cultural/Ethnic/L[employer] Belief unable to obtain Usual diet at home unable to obtain Skin Integrity/Comment: manolo score 12; intact Current %PO Good (75-100%) Estimated Nutritional Goals BEE in Kcals: Using Current wt Calories/Kcals/Kg 25-30kcals/kg Kcals Calculated 1575-1890kcals/day Protein: Using Current wt Protein g/kg/kg Protein Calculated 63g/day Fluid: ml 1575-1890ml/day (1ml/kcal) Nutritional Problem 1. Problem Problem No nutrition diagnosis at this time Intervention/Recommendation Comments Recommend continuing Regular diet Expected Outcomes/Goals Expected Outcomes/Goals PO intake >75% of meals
--- NOTE | 2017-08-02 17:27 | Progress Notes ---
DATE: 08/01/2017 SUBJECTIVE: The patient was seen and evaluated. The patient's chart was reviewed. Vital signs reviewed, stable. Overnight, nursing staff reported the patient has been mostly very withdrawn, very distraught. Today on [id number] evaluation, the patient presents very irritable and also presents very suspicious when attempting to validate his emotions more paranoid and refuses to be interviewed. MENTAL STATUS EXAMINATION: Paranoid, delusional, easily verbally assaultive towards staff members and also peers. ASSESSMENT AND PLAN: The patient is an 86-year-old male, who continues to be easily irritable, agitated, paranoid, suspicious, unable to formulate a safe plan outside the structured environment. We will continue monitoring and evaluating. We will continue with primary psychiatrist's treatment plans to target the patient's residual psychotic symptoms. JOB# [id number]
--- NOTE | 2017-08-02 18:46 | Internal Medicine Prog Note ---
Internal Medicine Subjective - Subjective Service Date: 08/02/17 Patient seen and examined:: with staff Patient is:: awake, non-verbal, in bed, confused Per staff patient has:: no adverse event Internal Medicine Objective - Results Result Diagrams: 08/01/17 06:16 Recent Labs: Laboratory Last Values WBC 6.1 Th/cmm (4.8-10.8) 08/01/17 06:16 RBC 4.53 Mil/cmm (3.80-5.80) 08/01/17 06:16 Hgb 12.7 gm/dL (12-16) 08/01/17 06:16 Hct 38.4 % (41.0-60) L 08/01/17 06:16 MCV 84.8 fl (80-99) 08/01/17 06:16 MCH 28.1 pg (27.0-31.0) 08/01/17 06:16 MCHC Differential 33.2 pg (28.0-36.0) 08/01/17 06:16 RDW 14.6 % (11.5-20.0) 08/01/17 06:16 Plt Count 77 Th/cmm (150-400) L 08/01/17 06:16 MPV 10.5 fl 08/01/17 06:16 Neutrophils % 51.4 % (40.0-80.0) 08/01/17 06:16 Lymphocytes % 31.5 % (20.0-50.0) 08/01/17 06:16 Monocytes % 13.1 % (2.0-10.0) H 08/01/17 06:16 Eosinophils % 3.5 % (0.0-5.0) 08/01/17 06:16 Basophils % 0.5 % (0.0-2.0) 08/01/17 06:16 PT 13.1 SECONDS (9.5-11.5) H 08/02/17 06:50 INR 1.25 (0.5-1.4) 08/02/17 06:50 Vitamin B12 475 pg/mL (211-946) 07/30/17 16:20 Folic Acid >20.0 ng/mL (>3.0) 07/30/17 16:20 - Physical Exam Vitals and I&O: Vital Signs Temp 97.3 F 08/02/17 15:41 Pulse 59 08/02/17 17:48 Resp 19 08/02/17 15:41 BP 111/52 08/02/17 17:48 Pulse Ox 98 08/02/17 15:41 Intake & Output 08/01/17 08/02/17 08/02/17 18:59 06:59 18:59 Intake Total 096 597 8194 Balance 181 890 4297 Intake: Oral 087 392 4116 Other: # Voids 5 3 4 # Bowel Movements 1 0 0 Stool Characteristics Hard Active Medications: Current Medications Acetaminophen (Tylenol) 650 mg PO Q4H PRN PRN Reason: Pain (Mild) Stop: 09/24/17 18:50 Amiodarone HCl (Cordarone) 200 mg PO DAILY [facility] Stop: 09/25/17 08:59 Last Admin: 08/02/17 09:13 Dose: Not Given Aspirin (Aspirin Chewable) 81 mg PO DAILY [facility] Stop: 09/25/17 08:59 Last Admin: 08/02/17 09:18 Dose: 81 mg Atorvastatin Calcium (Lipitor) 20 mg PO HS EV PRN Reason: Protocol Stop: 09/24/17 20:59 Last Admin: 08/01/17 21:10 Dose: 20 mg Carvedilol (Coreg) 3.125 mg PO BID [facility] Stop: 09/25/17 08:59 Last Admin: 08/02/17 17:48 Dose: Not Given Donepezil HCl (Aricept) 5 mg PO HS [facility] Stop: 09/25/17 20:59 Last Admin: 08/01/17 21:10 Dose: 5 mg Folic Acid (Folate) 1 mg PO DAILY [facility] Stop: 09/25/17 08:59 Last Admin: 08/02/17 09:26 Dose: 1 mg Furosemide (Lasix) 20 mg PO DAILY [facility] Stop: 09/25/17 08:59 Last Admin: 08/02/17 09:28 Dose: Not Given Lorazepam (Ativan) 0.5 mg PO Q6HR PRN; Protocol PRN Reason: Agitation Stop: 09/24/17 21:26 Last Admin: 07/30/17 21:46 Dose: 0.5 mg Magnesium Hydroxide (Milk Of Magnesia) 30 ml PO DAILY PRN PRN Reason: Constipation Stop: 09/30/17 15:31 Last Admin: 08/01/17 18:34 Dose: 30 ml Risperidone (Risperdal) 0.5 mg PO BID [facility] PRN Reason: Protocol Stop: 10/01/17 16:59 Last Admin: 08/02/17 17:47 Dose: 0.5 mg Tamsulosin HCl (Flomax) 0.4 mg PO BID [facility] Stop: 09/25/17 08:59 Last Admin: 08/02/17 17:47 Dose: 0.4 mg General: weak, demented HEENT: NC/AT, PERRLA, EOMI, anicteric sclerae, throat clear Neck: Supple, No JVD, No thyromegaly, No LAD Lungs: CTAB Cardiovascular: RRR, Normal S1, Normal S2, without murmur Abdomen: soft, non-tender, non-distended Extremities: clear Neurological: no change Internal Medicine Assmt/Plan - Assessment Assessment: 1.CHF. 2.CAD. 3.DEMENTIA. - Plan Plan: CONTINUE ON CURRENT MEDICATION AND DIET. Nutritional Asmnt/Malnutr-PDOC - Dietary Evaluation Malnutrition Findings (Please click <Entered> for more info): Nutritional Asmnt/Malnutrition Start: 07/31/17 10: 12 Text: Status: Complete Freq: Document 07/31/17 10:12 SUKHDEV (Rec: 07/31/17 10:16 SUKHDEV FRANKLIN- [email or web address]) Nutritional Asmnt/Malnutrition Patient General Information Nutritional Screening Moderate Risk Screening Diagnosis Psychosisi nos Pertinent Medical Hx/Surgical Hx denebtua, CAD, ischemic cardiomyopathy, HTN, hypercholesterolemia, prostate hypertophy Subjective Information Pt sleep in bed at time of visit Current Diet Order/ Nutrition Support regular Patient / S.O Not Indicated Pertinent Medications lipitor, folate, lasix Pertinent Labs reviewed Nutritional Hx/Data Height 1.65 m Height (Calculated Centimeters) 165.1 Current Weight (lbs) 63.049 kg Weight (Calculated Kilograms) 63.0 Weight (Calculated Grams) 82041.3 Recent Weight Change No Weight Status Approriate GI Symptoms GI Symptoms None Food Allergies No Cultural/Ethnic/Church Belief unable to obtain Usual diet at home unable to obtain Skin Integrity/Comment: manolo score 12; intact Current %PO Good (75-100%) Estimated Nutritional Goals BEE in Kcals: Using Current wt Calories/Kcals/Kg 25-30kcals/kg Kcals Calculated 1575-1890kcals/day Protein: Using Current wt Protein g/kg/kg Protein Calculated 63g/day Fluid: ml 1575-1890ml/day (1ml/kcal) Nutritional Problem 1. Problem Problem No nutrition diagnosis at this time Intervention/Recommendation Comments Recommend continuing Regular diet Expected Outcomes/Goals Expected Outcomes/Goals PO intake >75% of meals
[2017-08-02] MEDS: Atorvastatin Calcium 10 MG TAB PO SCH (20:54)
--- NOTE | 2017-08-03 02:40 | Progress Notes ---
DATE: 08/02/2017 Case was discussed with staff of the patient, reviewed records. The patient continues to be confused, continues to be unable to make safe plan for self-care, responding to internal stimuli. He tolerates the Risperdal with no side effects. No sedation, no nausea. I will be increasing the dose to 2.5 mg twice a day and so far no side effects, no sedation, no nausea, no extrapyramidal symptoms and we will continue to work with the patient in group therapy, milieu therapy, adjust medications as needed. JOB# [id number]
[2017-08-03 07:59] LABS: % BASOPHILS 0.4 % (0.0-2.0); % EOSINOPHILS 3.3 % (0.0-5.0); % LYMPHOCYTES 23.7 % (20.0-50.0); % NEUTROPHILS 60.6 % (40.0-80.0); HEMATOCRIT 38.7 % (41.0-60); HEMOGLOBIN 12.9 gm/dL (12-16); MEAN CELL VOLUME 84.1 fl (80-99); MEAN CORPUSCULAR HGB CONC 33.2 pg (28.0-36.0); MEAN PLATELET VOLUME 15.2 fl; NEUTROPHILE ABSOLUTE 4.3 Th/cmm (1.8-8.0); RED CELL DISTRIBUTION WIDTH 14.8 % (11.5-20.0); WHITE BLOOD COUNT 6.9 Th/cmm (4.8-10.8)
[2017-08-03 08:00] LABS: PLATELET COUNT 107 Th/cmm (150-400)
[2017-08-03] MEDS: Aspirin 81mg Chewable Tab PO SCH (08:15)
--- NOTE | 2017-08-03 19:14 | Internal Medicine Prog Note ---
Internal Medicine Subjective - Subjective Patient seen and examined:: with staff (HE IS EATING WELL,TAKING MEDICATION.) Patient is:: awake, non-verbal, in bed, confused Per staff patient has:: no adverse event Internal Medicine Objective - Results Result Diagrams: 08/03/17 07:10 Recent Labs: Laboratory Last Values WBC 6.9 Th/cmm (4.8-10.8) 08/03/17 07:10 RBC 4.60 Mil/cmm (3.80-5.80) 08/03/17 07:10 Hgb 12.9 gm/dL (12-16) 08/03/17 07:10 Hct 38.7 % (41.0-60) L 08/03/17 07:10 MCV 84.1 fl (80-99) 08/03/17 07:10 MCH 28.0 pg (27.0-31.0) 08/03/17 07:10 MCHC Differential 33.2 pg (28.0-36.0) 08/03/17 07:10 RDW 14.8 % (11.5-20.0) 08/03/17 07:10 Plt Count 107 Th/cmm (150-400) L D 08/03/17 07:10 MPV 15.2 fl 08/03/17 07:10 Neutrophils % 60.6 % (40.0-80.0) 08/03/17 07:10 Lymphocytes % 23.7 % (20.0-50.0) 08/03/17 07:10 Monocytes % 12.0 % (2.0-10.0) H 08/03/17 07:10 Eosinophils % 3.3 % (0.0-5.0) 08/03/17 07:10 Basophils % 0.4 % (0.0-2.0) 08/03/17 07:10 PT 13.1 SECONDS (9.5-11.5) H 08/02/17 06:50 INR 1.25 (0.5-1.4) 08/02/17 06:50 Vitamin B12 475 pg/mL (211-946) 07/30/17 16:20 Folic Acid >20.0 ng/mL (>3.0) 07/30/17 16:20 DEBO Screen Negative 07/30/17 16:20 - Physical Exam Vitals and I&O: Vital Signs Temp 97.4 F 08/03/17 06:19 Pulse 55 08/03/17 16:22 Resp 18 08/03/17 06:19 BP 98/57 08/03/17 16:22 Pulse Ox 96 08/03/17 06:19 Intake & Output 08/03/17 08/03/17 08/04/17 06:59 18:59 06:59 Intake Total 240 Balance 240 Intake: Oral 240 Other: # Voids 2 Active Medications: Current Medications Acetaminophen (Tylenol) 650 mg PO Q4H PRN PRN Reason: Pain (Mild) Stop: 09/24/17 18:50 Amiodarone HCl (Cordarone) 200 mg PO DAILY [facility] Stop: 09/25/17 08:59 Last Admin: 08/03/17 08:16 Dose: 200 mg Aspirin (Aspirin Chewable) 81 mg PO DAILY [facility] Stop: 09/25/17 08:59 Last Admin: 08/03/17 08:15 Dose: 81 mg Atorvastatin Calcium (Lipitor) 20 mg PO HS [facility] PRN Reason: Protocol Stop: 09/24/17 20:59 Last Admin: 08/02/17 20:54 Dose: 20 mg Carvedilol (Coreg) 3.125 mg PO BID [facility] Stop: 09/25/17 08:59 Last Admin: 08/03/17 16:22 Dose: Not Given Donepezil HCl (Aricept) 5 mg PO HS [facility] Stop: 09/25/17 20:59 Last Admin: 08/02/17 20:54 Dose: 5 mg Folic Acid (Folate) 1 mg PO DAILY [facility] Stop: 09/25/17 08:59 Last Admin: 08/03/17 08:15 Dose: 1 mg Furosemide (Lasix) 20 mg PO DAILY [facility] Stop: 09/25/17 08:59 Last Admin: 08/03/17 08:17 Dose: 20 mg Lorazepam (Ativan) 0.5 mg PO Q6H PRN; Protocol PRN Reason: Anxiety Stop: 10/02/17 12:30 Magnesium Hydroxide (Milk Of Magnesia) 30 ml PO DAILY PRN PRN Reason: Constipation Stop: 09/30/17 15:31 Last Admin: 08/01/17 18:34 Dose: 30 ml Risperidone (Risperdal) 0.5 mg PO BID [facility] PRN Reason: Protocol Stop: 10/01/17 16:59 Last Admin: 08/03/17 16:22 Dose: 0.5 mg Tamsulosin HCl (Flomax) 0.4 mg PO BID [facility] Stop: 09/25/17 08:59 Last Admin: 08/03/17 16:22 Dose: 0.4 mg General: weak, demented HEENT: NC/AT, PERRLA, EOMI, anicteric sclerae, throat clear Neck: Supple, No JVD, No thyromegaly, No LAD Lungs: CTAB Cardiovascular: RRR, Normal S1, Normal S2, without murmur Abdomen: soft, non-tender, non-distended Extremities: clear Neurological: no change Internal Medicine Assmt/Plan - Assessment Assessment: 1.CHF. 2.CAD. 3.DEMENTIA. 4.THROMBOCYTOPENIA - Plan Plan: CONTINUE ON CURRENT MEDICATION AND DIET.PT INR AND CBC IN AM. Nutritional Asmnt/Malnutr-PDOC - Dietary Evaluation Malnutrition Findings (Please click <Entered> for more info): Nutritional Asmnt/Malnutrition Start: 07/31/17 10: 12 Text: Status: Complete Freq: Document 07/31/17 10:12 SUKHDEV (Rec: 07/31/17 10:16 SUKHDEV FRANKLIN- [email or web address]) Nutritional Asmnt/Malnutrition Patient General Information Nutritional Screening Moderate Risk Screening Diagnosis Psychosisi nos Pertinent Medical Hx/Surgical Hx denebtua, CAD, ischemic cardiomyopathy, HTN, hypercholesterolemia, prostate hypertophy Subjective Information Pt sleep in bed at time of visit Current Diet Order/ Nutrition Support regular Patient / S.O Not Indicated Pertinent Medications lipitor, folate, lasix Pertinent Labs reviewed Nutritional Hx/Data Height 1.65 m Height (Calculated Centimeters) 165.1 Current Weight (lbs) 63.049 kg Weight (Calculated Kilograms) 63.0 Weight (Calculated Grams) 60534.3 Recent Weight Change No Weight Status Approriate GI Symptoms GI Symptoms None Food Allergies No Cultural/Ethnic/Zoroastrian Belief unable to obtain Usual diet at home unable to obtain Skin Integrity/Comment: manolo score 12; intact Current %PO Good (75-100%) Estimated Nutritional Goals BEE in Kcals: Using Current wt Calories/Kcals/Kg 25-30kcals/kg Kcals Calculated 1575-1890kcals/day Protein: Using Current wt Protein g/kg/kg Protein Calculated 63g/day Fluid: ml 1575-1890ml/day (1ml/kcal) Nutritional Problem 1. Problem Problem No nutrition diagnosis at this time Intervention/Recommendation Comments Recommend continuing Regular diet Expected Outcomes/Goals Expected Outcomes/Goals PO intake >75% of meals
[2017-08-03] MEDS: Atorvastatin Calcium 10 MG TAB PO SCH (20:18)
--- NOTE | 2017-08-03 22:55 | Progress Notes ---
DATE: 08/03/2017 Case was discussed with staff of the patient, reviewed records. The patient continues to be confused, unpredictable and impulsive, needing redirection. He is sleeping better, eating better, compliant with the medication with no side effects, no sedation, no nausea, no extrapyramidal symptoms, and I increased his Risperdal yesterday 0.5 mg twice a day before we make any changes, a little more time on that. His CBC showed low hematocrit 38.7, but RBC was within normal range. He has a low platelet count as well. I asked the staff to make sure the medical doctor is aware of it. His B12 and folate level are within normal range. We will continue to work with the patient in group therapy, milieu therapy, and adjust medication as needed. JOB# [id number]
[2017-08-04] MEDS: Aspirin 81mg Chewable Tab PO SCH (08:42)
--- NOTE | 2017-08-04 11:12 | General Progress Note ---
Subjective - Review of Systems Service Date: 08/04/17 Objective - Results Result Diagrams: 08/03/17 07:10 Recent Labs: Laboratory Last Values WBC 6.9 Th/cmm (4.8-10.8) 08/03/17 07:10 RBC 4.60 Mil/cmm (3.80-5.80) 08/03/17 07:10 Hgb 12.9 gm/dL (12-16) 08/03/17 07:10 Hct 38.7 % (41.0-60) L 08/03/17 07:10 MCV 84.1 fl (80-99) 08/03/17 07:10 MCH 28.0 pg (27.0-31.0) 08/03/17 07:10 MCHC Differential 33.2 pg (28.0-36.0) 08/03/17 07:10 RDW 14.8 % (11.5-20.0) 08/03/17 07:10 Plt Count 107 Th/cmm (150-400) L D 08/03/17 07:10 MPV 15.2 fl 08/03/17 07:10 Neutrophils % 60.6 % (40.0-80.0) 08/03/17 07:10 Lymphocytes % 23.7 % (20.0-50.0) 08/03/17 07:10 Monocytes % 12.0 % (2.0-10.0) H 08/03/17 07:10 Eosinophils % 3.3 % (0.0-5.0) 08/03/17 07:10 Basophils % 0.4 % (0.0-2.0) 08/03/17 07:10 PT 13.1 SECONDS (9.5-11.5) H 08/02/17 06:50 INR 1.25 (0.5-1.4) 08/02/17 06:50 Vitamin B12 475 pg/mL (211-946) 07/30/17 16:20 Folic Acid >20.0 ng/mL (>3.0) 07/30/17 16:20 DEBO Screen Negative 07/30/17 16:20 - Physical Exam Vitals and I&O: Vital Signs Temp 97.8 F 08/03/17 20:00 Pulse 60 08/04/17 08:47 Resp 19 08/03/17 20:00 BP 113/51 08/04/17 08:47 Pulse Ox 98 08/03/17 20:00 Intake & Output 08/03/17 08/04/17 08/04/17 18:59 06:59 18:59 Intake Total 360 Balance 360 Intake: Oral 360 Other: # Voids 2 Active Medications: Current Medications Acetaminophen (Tylenol) 650 mg PO Q4H PRN PRN Reason: Pain (Mild) Stop: 09/24/17 18:50 Amiodarone HCl (Cordarone) 200 mg PO DAILY [facility] Stop: 09/25/17 08:59 Last Admin: 08/04/17 08:47 Dose: 200 mg Aspirin (Aspirin Chewable) 81 mg PO DAILY [facility] Stop: 09/25/17 08:59 Last Admin: 08/04/17 08:42 Dose: 81 mg Atorvastatin Calcium (Lipitor) 20 mg PO HS [facility] PRN Reason: Protocol Stop: 09/24/17 20:59 Last Admin: 08/03/17 20:18 Dose: 20 mg Carvedilol (Coreg) 3.125 mg PO BID [facility] Stop: 09/25/17 08:59 Last Admin: 08/04/17 08:47 Dose: Not Given Donepezil HCl (Aricept) 5 mg PO HS [facility] Stop: 09/25/17 20:59 Last Admin: 08/03/17 20:18 Dose: 5 mg Folic Acid (Folate) 1 mg PO DAILY [facility] Stop: 09/25/17 08:59 Last Admin: 08/04/17 08:42 Dose: 1 mg Furosemide (Lasix) 20 mg PO DAILY [facility] Stop: 09/25/17 08:59 Last Admin: 08/04/17 08:46 Dose: Not Given Lorazepam (Ativan) 0.5 mg PO Q6H PRN; Protocol PRN Reason: Anxiety Stop: 10/02/17 12:30 Magnesium Hydroxide (Milk Of Magnesia) 30 ml PO DAILY PRN PRN Reason: Constipation Stop: 09/30/17 15:31 Last Admin: 08/01/17 18:34 Dose: 30 ml Risperidone (Risperdal) 0.75 mg PO BID [facility] PRN Reason: Protocol Stop: 10/03/17 09:00 Tamsulosin HCl (Flomax) 0.4 mg PO BID [facility] Stop: 09/25/17 08:59 Last Admin: 08/04/17 08:43 Dose: 0.4 mg General: Alert, No acute distress HEENT: Atraumatic, PERRLA, EOMI Neck: Supple, JVD Cardiovascular: Regular rate, Normal S1, Normal S2 Lungs: Clear to auscultation Abdomen: Bowel sounds, Soft Assessment/Plan - Assessment Assessment: * Thrombocytopenia stable, 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 * Dementia * Psychosis follow US report B12, folate normal normal spleen size on US plt better monitor plt for now Nutritional Asmnt/Malnutr-PDOC - Dietary Evaluation Malnutrition Findings (Please click <Entered> for more info): Nutritional Asmnt/Malnutrition Start: 07/31/17 10: 12 Text: Status: Complete Freq: Document 07/31/17 10:12 SUKHDEV (Rec: 07/31/17 10:16 SUKHDEV REID- [email or web address]) Nutritional Asmnt/Malnutrition Patient General Information Nutritional Screening Moderate Risk Screening Diagnosis Psychosisi nos Pertinent Medical Hx/Surgical Hx denebtua, CAD, ischemic cardiomyopathy, HTN, hypercholesterolemia, prostate hypertophy Subjective Information Pt sleep in bed at time of visit Current Diet Order/ Nutrition Support regular Patient / S.O Not Indicated Pertinent Medications lipitor, folate, lasix Pertinent Labs reviewed Nutritional Hx/Data Height 1.65 m Height (Calculated Centimeters) 165.1 Current Weight (lbs) 63.049 kg Weight (Calculated Kilograms) 63.0 Weight (Calculated Grams) 49787.3 Recent Weight Change No Weight Status Approriate GI Symptoms GI Symptoms None Food Allergies No Cultural/Ethnic/Mandaeism Belief unable to obtain Usual diet at home unable to obtain Skin Integrity/Comment: manolo score 12; intact Current %PO Good (75-100%) Estimated Nutritional Goals BEE in Kcals: Using Current wt Calories/Kcals/Kg 25-30kcals/kg Kcals Calculated 1575-1890kcals/day Protein: Using Current wt Protein g/kg/kg Protein Calculated 63g/day Fluid: ml 1575-1890ml/day (1ml/kcal) Nutritional Problem 1. Problem Problem No nutrition diagnosis at this time Intervention/Recommendation Comments Recommend continuing Regular diet Expected Outcomes/Goals Expected Outcomes/Goals PO intake >75% of meals
--- NOTE | 2017-08-04 17:17 | Progress Notes ---
DATE: Case was discussed with staff of the patient, reviewed records. The patient continues to be unpredictable, impulsive, labile, responding to internal stimuli. Mood irritable. He continues to have poor insight. Unable to make safe plan for self-care. I will be increasing his Risperdal dose to 0.75 mg twice a day and so far no side effects, no sedation, no nausea, no extrapyramidal symptoms. I will continue to work with the patient in group therapy, milieu therapy, adjust the medication as needed. JOB# [id number]
--- NOTE | 2017-08-04 19:26 | Internal Medicine Prog Note ---
Internal Medicine Subjective - Subjective Service Date: 08/04/17 Patient seen and examined:: without staff Patient is:: awake, non-verbal, in bed, confused Per staff patient has:: no adverse event Internal Medicine Objective - Results Result Diagrams: 08/03/17 07:10 Recent Labs: Laboratory Last Values WBC 6.9 Th/cmm (4.8-10.8) 08/03/17 07:10 RBC 4.60 Mil/cmm (3.80-5.80) 08/03/17 07:10 Hgb 12.9 gm/dL (12-16) 08/03/17 07:10 Hct 38.7 % (41.0-60) L 08/03/17 07:10 MCV 84.1 fl (80-99) 08/03/17 07:10 MCH 28.0 pg (27.0-31.0) 08/03/17 07:10 MCHC Differential 33.2 pg (28.0-36.0) 08/03/17 07:10 RDW 14.8 % (11.5-20.0) 08/03/17 07:10 Plt Count 107 Th/cmm (150-400) L D 08/03/17 07:10 MPV 15.2 fl 08/03/17 07:10 Neutrophils % 60.6 % (40.0-80.0) 08/03/17 07:10 Lymphocytes % 23.7 % (20.0-50.0) 08/03/17 07:10 Monocytes % 12.0 % (2.0-10.0) H 08/03/17 07:10 Eosinophils % 3.3 % (0.0-5.0) 08/03/17 07:10 Basophils % 0.4 % (0.0-2.0) 08/03/17 07:10 PT 13.1 SECONDS (9.5-11.5) H 08/02/17 06:50 INR 1.25 (0.5-1.4) 08/02/17 06:50 Vitamin B12 475 pg/mL (211-946) 07/30/17 16:20 Folic Acid >20.0 ng/mL (>3.0) 07/30/17 16:20 DEBO Screen Negative 07/30/17 16:20 - Physical Exam Vitals and I&O: Vital Signs Temp 98.2 F 08/04/17 14:00 Pulse 57 08/04/17 16:13 Resp 20 08/04/17 14:00 BP 106/63 08/04/17 16:13 Pulse Ox 96 08/04/17 14:00 Intake & Output 08/04/17 08/04/17 08/05/17 06:59 18:59 06:59 Intake Total 360 900 Balance 360 900 Intake: Oral 360 900 Other: # Voids 2 3 # Bowel Movements 1 Active Medications: Current Medications Acetaminophen (Tylenol) 650 mg PO Q4H PRN PRN Reason: Pain (Mild) Stop: 09/24/17 18:50 Amiodarone HCl (Cordarone) 200 mg PO DAILY [facility] Stop: 09/25/17 08:59 Last Admin: 08/04/17 08:47 Dose: 200 mg Aspirin (Aspirin Chewable) 81 mg PO DAILY EV Stop: 09/25/17 08:59 Last Admin: 08/04/17 08:42 Dose: 81 mg Atorvastatin Calcium (Lipitor) 20 mg PO HS EV PRN Reason: Protocol Stop: 09/24/17 20:59 Last Admin: 08/03/17 20:18 Dose: 20 mg Carvedilol (Coreg) 3.125 mg PO BID EV Stop: 09/25/17 08:59 Last Admin: 08/04/17 16:13 Dose: Not Given Donepezil HCl (Aricept) 5 mg PO HS EV Stop: 09/25/17 20:59 Last Admin: 08/03/17 20:18 Dose: 5 mg Folic Acid (Folate) 1 mg PO DAILY EV Stop: 09/25/17 08:59 Last Admin: 08/04/17 08:42 Dose: 1 mg Furosemide (Lasix) 20 mg PO DAILY EV Stop: 09/25/17 08:59 Last Admin: 08/04/17 08:46 Dose: Not Given Lorazepam (Ativan) 0.5 mg PO Q6H PRN; Protocol PRN Reason: Anxiety Stop: 10/02/17 12:30 Magnesium Hydroxide (Milk Of Magnesia) 30 ml PO DAILY PRN PRN Reason: Constipation Stop: 09/30/17 15:31 Last Admin: 08/01/17 18:34 Dose: 30 ml Risperidone (Risperdal) 0.75 mg PO BID EV PRN Reason: Protocol Stop: 10/03/17 09:00 Last Admin: 08/04/17 16:15 Dose: 0.75 mg Tamsulosin HCl (Flomax) 0.4 mg PO BID EV Stop: 09/25/17 08:59 Last Admin: 08/04/17 16:13 Dose: 0.4 mg General: weak, demented HEENT: NC/AT, PERRLA, EOMI, anicteric sclerae, throat clear Neck: Supple, No JVD, No thyromegaly, No LAD Lungs: CTAB Cardiovascular: RRR, Normal S1, Normal S2, without murmur Abdomen: soft, non-tender, non-distended Extremities: clear Neurological: no change Internal Medicine Assmt/Plan - Assessment Assessment: 1.CHF. 2.CAD. 3.DEMENTIA. 4.THROMBOCYTOPENIA - Plan Plan: CONTINUE ON CURRENT MEDICATION AND DIET. Nutritional Asmnt/Malnutr-PDOC - Dietary Evaluation Malnutrition Findings (Please click <Entered> for more info): Nutritional Asmnt/Malnutrition Start: 07/31/17 10: 12 Text: Status: Complete Freq: Document 07/31/17 10:12 SUKHDEV (Rec: 07/31/17 10:16 SUKHDEV FRANKLIN- [email or web address]) Nutritional Asmnt/Malnutrition Patient General Information Nutritional Screening Moderate Risk Screening Diagnosis Psychosisi nos Pertinent Medical Hx/Surgical Hx denebtua, CAD, ischemic cardiomyopathy, HTN, hypercholesterolemia, prostate hypertophy Subjective Information Pt sleep in bed at time of visit Current Diet Order/ Nutrition Support regular Patient / S.O Not Indicated Pertinent Medications lipitor, folate, lasix Pertinent Labs reviewed Nutritional Hx/Data Height 1.65 m Height (Calculated Centimeters) 165.1 Current Weight (lbs) 63.049 kg Weight (Calculated Kilograms) 63.0 Weight (Calculated Grams) 57934.3 Recent Weight Change No Weight Status Approriate GI Symptoms GI Symptoms None Food Allergies No Cultural/Ethnic/Taoist Belief unable to obtain Usual diet at home unable to obtain Skin Integrity/Comment: manolo score 12; intact Current %PO Good (75-100%) Estimated Nutritional Goals BEE in Kcals: Using Current wt Calories/Kcals/Kg 25-30kcals/kg Kcals Calculated 1575-1890kcals/day Protein: Using Current wt Protein g/kg/kg Protein Calculated 63g/day Fluid: ml 1575-1890ml/day (1ml/kcal) Nutritional Problem 1. Problem Problem No nutrition diagnosis at this time Intervention/Recommendation Comments Recommend continuing Regular diet Expected Outcomes/Goals Expected Outcomes/Goals PO intake >75% of meals
[2017-08-04] MEDS: Atorvastatin Calcium 10 MG TAB PO SCH (21:06)
[2017-08-05] MEDS: Aspirin 81mg Chewable Tab PO SCH (09:27)
[2017-08-05 13:23] LABS: % BASOPHILS 0.2 % (0.0-2.0); % EOSINOPHILS 2.7 % (0.0-5.0); % LYMPHOCYTES 22.9 % (20.0-50.0); % MONOCYTES 9.5 % (2.0-10.0); % NEUTROPHILS 64.7 % (40.0-80.0); HEMATOCRIT 38.9 % (41.0-60); MEAN CELL VOLUME 84.4 fl (80-99); MEAN CORPUSCULAR HEMOGLOBIN 28.2 pg (27.0-31.0); MEAN CORPUSCULAR HGB CONC 33.4 pg (28.0-36.0); MEAN PLATELET VOLUME 13.3 fl; NEUTROPHILE ABSOLUTE 3.7 Th/cmm (1.8-8.0); PLATELET COUNT 89 Th/cmm (150-400); RED BLOOD COUNT 4.61 Mil/cmm (3.80-5.80); RED CELL DISTRIBUTION WIDTH 14.9 % (11.5-20.0); WHITE BLOOD COUNT 5.7 Th/cmm (4.8-10.8)
--- NOTE | 2017-08-05 17:33 | Internal Medicine Prog Note ---
Internal Medicine Subjective - Subjective Service Date: 08/05/17 Patient seen and examined:: with staff (HE IS EATING WELL) Patient is:: awake, non-verbal, in bed, confused Per staff patient has:: no adverse event Internal Medicine Objective - Results Result Diagrams: 08/05/17 13:10 Recent Labs: Laboratory Last Values WBC 5.7 Th/cmm (4.8-10.8) 08/05/17 13:10 RBC 4.61 Mil/cmm (3.80-5.80) 08/05/17 13:10 Hgb 13.0 gm/dL (12-16) 08/05/17 13:10 Hct 38.9 % (41.0-60) L 08/05/17 13:10 MCV 84.4 fl (80-99) 08/05/17 13:10 MCH 28.2 pg (27.0-31.0) 08/05/17 13:10 MCHC Differential 33.4 pg (28.0-36.0) 08/05/17 13:10 RDW 14.9 % (11.5-20.0) 08/05/17 13:10 Plt Count 89 Th/cmm (150-400) L 08/05/17 13:10 MPV 13.3 fl 08/05/17 13:10 Neutrophils % 64.7 % (40.0-80.0) 08/05/17 13:10 Lymphocytes % 22.9 % (20.0-50.0) 08/05/17 13:10 Monocytes % 9.5 % (2.0-10.0) 08/05/17 13:10 Eosinophils % 2.7 % (0.0-5.0) 08/05/17 13:10 Basophils % 0.2 % (0.0-2.0) 08/05/17 13:10 PT 13.1 SECONDS (9.5-11.5) H 08/02/17 06:50 INR 1.25 (0.5-1.4) 08/02/17 06:50 Vitamin B12 475 pg/mL (211-946) 07/30/17 16:20 Folic Acid >20.0 ng/mL (>3.0) 07/30/17 16:20 DEBO Screen Negative 07/30/17 16:20 - Physical Exam Vitals and I&O: Vital Signs Temp 98.2 F 08/04/17 20:00 Pulse 65 08/05/17 16:15 Resp 20 08/04/17 20:00 BP 106/59 08/05/17 16:15 Pulse Ox 98 08/04/17 20:00 Intake & Output 08/04/17 08/05/17 08/05/17 18:59 06:59 18:59 Intake Total 900 120 Balance 900 120 Intake: Oral 900 120 Other: # Voids 3 3 # Bowel Movements 1 Active Medications: Current Medications Acetaminophen (Tylenol) 650 mg PO Q4H PRN PRN Reason: Pain (Mild) Stop: 09/24/17 18:50 Amiodarone HCl (Cordarone) 200 mg PO DAILY EV Stop: 09/25/17 08:59 Last Admin: 08/05/17 09:38 Dose: 200 mg Aspirin (Aspirin Chewable) 81 mg PO DAILY EV Stop: 09/25/17 08:59 Last Admin: 08/05/17 09:27 Dose: 81 mg Atorvastatin Calcium (Lipitor) 20 mg PO HS EV PRN Reason: Protocol Stop: 09/24/17 20:59 Last Admin: 08/04/17 21:06 Dose: 20 mg Carvedilol (Coreg) 3.125 mg PO BID EV Stop: 09/25/17 08:59 Last Admin: 08/05/17 16:15 Dose: Not Given Donepezil HCl (Aricept) 5 mg PO HS EV Stop: 09/25/17 20:59 Last Admin: 08/04/17 21:06 Dose: 5 mg Folic Acid (Folate) 1 mg PO DAILY EV Stop: 09/25/17 08:59 Last Admin: 08/05/17 09:30 Dose: 1 mg Furosemide (Lasix) 20 mg PO DAILY EV Stop: 09/25/17 08:59 Last Admin: 08/05/17 09:39 Dose: Not Given Lorazepam (Ativan) 0.5 mg PO Q6H PRN; Protocol PRN Reason: Anxiety Stop: 10/02/17 12:30 Magnesium Hydroxide (Milk Of Magnesia) 30 ml PO DAILY PRN PRN Reason: Constipation Stop: 09/30/17 15:31 Last Admin: 08/01/17 18:34 Dose: 30 ml Risperidone (Risperdal) 0.5 mg PO BID EV PRN Reason: Protocol Stop: 10/04/17 11:20 Last Admin: 08/05/17 16:15 Dose: 0.5 mg Tamsulosin HCl (Flomax) 0.4 mg PO BID EV Stop: 09/25/17 08:59 Last Admin: 08/05/17 16:15 Dose: 0.4 mg General: weak, demented HEENT: NC/AT, PERRLA, EOMI, anicteric sclerae, throat clear Neck: Supple, No JVD, No thyromegaly, No LAD Lungs: CTAB Cardiovascular: RRR, Normal S1, Normal S2, without murmur Abdomen: soft, non-tender, non-distended Extremities: clear Neurological: no change Internal Medicine Assmt/Plan - Assessment Assessment: 1.CHF. 2.CAD. 3.DEMENTIA. 4.THROMBOCYTOPENIA - Plan Plan: CONTINUE ON CURRENT MEDICATION AND DIET. Nutritional Asmnt/Malnutr-PDOC - Dietary Evaluation Malnutrition Findings (Please click <Entered> for more info): Nutritional Asmnt/Malnutrition Start: 07/31/17 10: 12 Text: Status: Complete Freq: Document 07/31/17 10:12 SUKHDEV (Rec: 07/31/17 10:16 SUKHDEV FRANKLIN- [email or web address]) Nutritional Asmnt/Malnutrition Patient General Information Nutritional Screening Moderate Risk Screening Diagnosis Psychosisi nos Pertinent Medical Hx/Surgical Hx denebtua, CAD, ischemic cardiomyopathy, HTN, hypercholesterolemia, prostate hypertophy Subjective Information Pt sleep in bed at time of visit Current Diet Order/ Nutrition Support regular Patient / S.O Not Indicated Pertinent Medications lipitor, folate, lasix Pertinent Labs reviewed Nutritional Hx/Data Height 1.65 m Height (Calculated Centimeters) 165.1 Current Weight (lbs) 63.049 kg Weight (Calculated Kilograms) 63.0 Weight (Calculated Grams) 98131.3 Recent Weight Change No Weight Status Approriate GI Symptoms GI Symptoms None Food Allergies No Cultural/Ethnic/Zoroastrian Belief unable to obtain Usual diet at home unable to obtain Skin Integrity/Comment: manolo score 12; intact Current %PO Good (75-100%) Estimated Nutritional Goals BEE in Kcals: Using Current wt Calories/Kcals/Kg 25-30kcals/kg Kcals Calculated 1575-1890kcals/day Protein: Using Current wt Protein g/kg/kg Protein Calculated 63g/day Fluid: ml 1575-1890ml/day (1ml/kcal) Nutritional Problem 1. Problem Problem No nutrition diagnosis at this time Intervention/Recommendation Comments Recommend continuing Regular diet Expected Outcomes/Goals Expected Outcomes/Goals PO intake >75% of meals
[2017-08-05] MEDS: Atorvastatin Calcium 10 MG TAB PO SCH (21:25)
--- NOTE | 2017-08-05 23:21 | Progress Notes ---
DATE: 08/05/2017 The case was discussed with staff of the patient, reviewed records. The patient is reported to be somewhat more mellow and sedated. The patient is in his Radha chair. He is still unable to participate in meaningful conversation or make safe plan for self-care. He is sleeping better, eating better. I did increase his Risperdal yesterday to 0.75 mg twice a day, I will go down to 0.5 mg twice a day and so far no other side effects besides sedation, no extrapyramidal symptoms. We will continue to work with the patient in group therapy, milieu therapy, adjust the medication as needed. JOB# [id number]
[2017-08-06 08:50] LABS: % BASOPHILS 0.5 % (0.0-2.0)
[2017-08-06 08:53] LABS: % EOSINOPHILS 3.1 % (0.0-5.0); % LYMPHOCYTES 25.7 % (20.0-50.0); % MONOCYTES 7.6 % (2.0-10.0); % NEUTROPHILS 63.1 % (40.0-80.0); HEMOGLOBIN 13.3 gm/dL (12-16); MEAN CELL VOLUME 84.8 fl (80-99); MEAN CORPUSCULAR HEMOGLOBIN 28.3 pg (27.0-31.0); MEAN CORPUSCULAR HGB CONC 33.3 pg (28.0-36.0); MEAN PLATELET VOLUME 10.9 fl; NEUTROPHILE ABSOLUTE 3.8 Th/cmm (1.8-8.0); RED BLOOD COUNT 4.72 Mil/cmm (3.80-5.80); RED CELL DISTRIBUTION WIDTH 14.9 % (11.5-20.0)
[2017-08-06] MEDS: Aspirin 81mg Chewable Tab PO SCH (09:39)
[2017-08-06 10:01] LABS: PLATELET COUNT 91 Th/cmm (150-400)
--- NOTE | 2017-08-06 14:36 | General Progress Note ---
Subjective - Review of Systems Service Date: 08/06/17 Objective - Results Result Diagrams: 08/06/17 08:30 Recent Labs: Laboratory Last Values WBC 6.0 Th/cmm (4.8-10.8) 08/06/17 08:30 RBC 4.72 Mil/cmm (3.80-5.80) 08/06/17 08:30 Hgb 13.3 gm/dL (12-16) 08/06/17 08:30 Hct 40.0 % (41.0-60) L 08/06/17 08:30 MCV 84.8 fl (80-99) 08/06/17 08:30 MCH 28.3 pg (27.0-31.0) 08/06/17 08:30 MCHC Differential 33.3 pg (28.0-36.0) 08/06/17 08:30 RDW 14.9 % (11.5-20.0) 08/06/17 08:30 Plt Count 91 Th/cmm (150-400) L 08/06/17 08:30 MPV 10.9 fl 08/06/17 08:30 Neutrophils % 63.1 % (40.0-80.0) 08/06/17 08:30 Lymphocytes % 25.7 % (20.0-50.0) 08/06/17 08:30 Monocytes % 7.6 % (2.0-10.0) 08/06/17 08:30 Eosinophils % 3.1 % (0.0-5.0) 08/06/17 08:30 Basophils % 0.5 % (0.0-2.0) 08/06/17 08:30 PT 13.1 SECONDS (9.5-11.5) H 08/02/17 06:50 INR 1.25 (0.5-1.4) 08/02/17 06:50 Vitamin B12 475 pg/mL (211-946) 07/30/17 16:20 Folic Acid >20.0 ng/mL (>3.0) 07/30/17 16:20 DEBO Screen Negative 07/30/17 16:20 - Physical Exam Vitals and I&O: Vital Signs Temp 98.0 F 08/05/17 14:00 Pulse 75 08/06/17 09:39 Resp 20 08/05/17 14:00 BP 139/62 08/06/17 09:40 Pulse Ox 98 08/05/17 14:00 Intake & Output 08/05/17 08/06/17 08/06/17 18:59 06:59 18:59 Intake Total 1000 Balance 1000 Intake: Oral 1000 Other: # Voids 3 # Bowel Movements 1 Active Medications: Current Medications Acetaminophen (Tylenol) 650 mg PO Q4H PRN PRN Reason: Pain (Mild) Stop: 09/24/17 18:50 Amiodarone HCl (Cordarone) 200 mg PO DAILY [facility] Stop: 09/25/17 08:59 Last Admin: 08/06/17 09:39 Dose: 200 mg Aspirin (Aspirin Chewable) 81 mg PO DAILY [facility] Stop: 09/25/17 08:59 Last Admin: 08/06/17 09:39 Dose: 81 mg Atorvastatin Calcium (Lipitor) 20 mg PO HS EV PRN Reason: Protocol Stop: 09/24/17 20:59 Last Admin: 08/05/17 21:25 Dose: 20 mg Carvedilol (Coreg) 3.125 mg PO BID [facility] Stop: 09/25/17 08:59 Last Admin: 08/06/17 09:39 Dose: 3.125 mg Donepezil HCl (Aricept) 5 mg PO HS [facility] Stop: 09/25/17 20:59 Last Admin: 08/05/17 21:26 Dose: 5 mg Folic Acid (Folate) 1 mg PO DAILY [facility] Stop: 09/25/17 08:59 Last Admin: 08/06/17 09:41 Dose: 1 mg Furosemide (Lasix) 20 mg PO DAILY [facility] Stop: 09/25/17 08:59 Last Admin: 08/06/17 09:40 Dose: 20 mg Lorazepam (Ativan) 0.5 mg PO Q6H PRN; Protocol PRN Reason: Anxiety Stop: 10/02/17 12:30 Magnesium Hydroxide (Milk Of Magnesia) 30 ml PO DAILY PRN PRN Reason: Constipation Stop: 09/30/17 15:31 Last Admin: 08/01/17 18:34 Dose: 30 ml Risperidone (Risperdal) 0.5 mg PO BID EV PRN Reason: Protocol Stop: 10/04/17 11:20 Last Admin: 08/06/17 09:41 Dose: 0.5 mg Tamsulosin HCl (Flomax) 0.4 mg PO BID EV Stop: 09/25/17 08:59 Last Admin: 08/06/17 09:41 Dose: 0.4 mg General: Alert, No acute distress HEENT: Atraumatic, PERRLA, EOMI Neck: Supple, JVD Cardiovascular: Regular rate, Normal S1, Normal S2 Lungs: Clear to auscultation Abdomen: Bowel sounds, Soft Assessment/Plan - Assessment Assessment: * Thrombocytopenia stable, 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 * Dementia * Psychosis follow US report B12, folate normal normal spleen size on US plt stable , fluctuating monitor plt for now Nutritional Asmnt/Malnutr-PDOC - Dietary Evaluation Malnutrition Findings (Please click <Entered> for more info): Nutritional Asmnt/Malnutrition Start: 07/31/17 10: 12 Text: Status: Complete Freq: Document 07/31/17 10:12 SUKHDEV (Rec: 07/31/17 10:16 SUKHDEV FRANKLIN- [email or web address]) Nutritional Asmnt/Malnutrition Patient General Information Nutritional Screening Moderate Risk Screening Diagnosis Psychosisi nos Pertinent Medical Hx/Surgical Hx denebtua, CAD, ischemic cardiomyopathy, HTN, hypercholesterolemia, prostate hypertophy Subjective Information Pt sleep in bed at time of visit Current Diet Order/ Nutrition Support regular Patient / S.O Not Indicated Pertinent Medications lipitor, folate, lasix Pertinent Labs reviewed Nutritional Hx/Data Height 1.65 m Height (Calculated Centimeters) 165.1 Current Weight (lbs) 63.049 kg Weight (Calculated Kilograms) 63.0 Weight (Calculated Grams) 45539.3 Recent Weight Change No Weight Status Approriate GI Symptoms GI Symptoms None Food Allergies No Cultural/Ethnic/Jew Belief unable to obtain Usual diet at home unable to obtain Skin Integrity/Comment: manolo score 12; intact Current %PO Good (75-100%) Estimated Nutritional Goals BEE in Kcals: Using Current wt Calories/Kcals/Kg 25-30kcals/kg Kcals Calculated 1575-1890kcals/day Protein: Using Current wt Protein g/kg/kg Protein Calculated 63g/day Fluid: ml 1575-1890ml/day (1ml/kcal) Nutritional Problem 1. Problem Problem No nutrition diagnosis at this time Intervention/Recommendation Comments Recommend continuing Regular diet Expected Outcomes/Goals Expected Outcomes/Goals PO intake >75% of meals
--- NOTE | 2017-08-06 20:28 | Internal Medicine Prog Note ---
Internal Medicine Subjective - Subjective Service Date: 08/06/17 Patient seen and examined:: without staff Patient is:: awake, non-verbal, in bed, confused Per staff patient has:: no adverse event Internal Medicine Objective - Results Result Diagrams: 08/06/17 08:30 Recent Labs: Laboratory Last Values WBC 6.0 Th/cmm (4.8-10.8) 08/06/17 08:30 RBC 4.72 Mil/cmm (3.80-5.80) 08/06/17 08:30 Hgb 13.3 gm/dL (12-16) 08/06/17 08:30 Hct 40.0 % (41.0-60) L 08/06/17 08:30 MCV 84.8 fl (80-99) 08/06/17 08:30 MCH 28.3 pg (27.0-31.0) 08/06/17 08:30 MCHC Differential 33.3 pg (28.0-36.0) 08/06/17 08:30 RDW 14.9 % (11.5-20.0) 08/06/17 08:30 Plt Count 91 Th/cmm (150-400) L 08/06/17 08:30 MPV 10.9 fl 08/06/17 08:30 Neutrophils % 63.1 % (40.0-80.0) 08/06/17 08:30 Lymphocytes % 25.7 % (20.0-50.0) 08/06/17 08:30 Monocytes % 7.6 % (2.0-10.0) 08/06/17 08:30 Eosinophils % 3.1 % (0.0-5.0) 08/06/17 08:30 Basophils % 0.5 % (0.0-2.0) 08/06/17 08:30 PT 13.1 SECONDS (9.5-11.5) H 08/02/17 06:50 INR 1.25 (0.5-1.4) 08/02/17 06:50 Vitamin B12 475 pg/mL (211-946) 07/30/17 16:20 Folic Acid >20.0 ng/mL (>3.0) 07/30/17 16:20 DEBO Screen Negative 07/30/17 16:20 - Physical Exam Vitals and I&O: Vital Signs Temp 97.8 F 08/06/17 16:12 Pulse 56 08/06/17 16:38 Resp 18 08/06/17 16:12 BP 103/52 08/06/17 16:38 Pulse Ox 96 08/06/17 16:12 Intake & Output 08/06/17 08/06/17 08/07/17 06:59 18:59 06:59 Intake Total 900 Balance 900 Intake: Oral 900 Other: # Voids 5 # Bowel Movements 1 Active Medications: Current Medications Acetaminophen (Tylenol) 650 mg PO Q4H PRN PRN Reason: Pain (Mild) Stop: 09/24/17 18:50 Amiodarone HCl (Cordarone) 200 mg PO DAILY [facility] Stop: 09/25/17 08:59 Last Admin: 08/06/17 09:39 Dose: 200 mg Aspirin (Aspirin Chewable) 81 mg PO DAILY [facility] Stop: 09/25/17 08:59 Last Admin: 08/06/17 09:39 Dose: 81 mg Atorvastatin Calcium (Lipitor) 20 mg PO HS [facility] PRN Reason: Protocol Stop: 09/24/17 20:59 Last Admin: 08/05/17 21:25 Dose: 20 mg Carvedilol (Coreg) 3.125 mg PO BID [facility] Stop: 09/25/17 08:59 Last Admin: 08/06/17 16:38 Dose: Not Given Donepezil HCl (Aricept) 5 mg PO HS [facility] Stop: 09/25/17 20:59 Last Admin: 08/05/17 21:26 Dose: 5 mg Folic Acid (Folate) 1 mg PO DAILY [facility] Stop: 09/25/17 08:59 Last Admin: 08/06/17 09:41 Dose: 1 mg Furosemide (Lasix) 20 mg PO DAILY [facility] Stop: 09/25/17 08:59 Last Admin: 08/06/17 09:40 Dose: 20 mg Lorazepam (Ativan) 0.5 mg PO Q6H PRN; Protocol PRN Reason: Anxiety Stop: 10/02/17 12:30 Magnesium Hydroxide (Milk Of Magnesia) 30 ml PO DAILY PRN PRN Reason: Constipation Stop: 09/30/17 15:31 Last Admin: 08/01/17 18:34 Dose: 30 ml Risperidone (Risperdal) 0.5 mg PO BID EV PRN Reason: Protocol Stop: 10/04/17 11:20 Last Admin: 08/06/17 16:31 Dose: 0.5 mg Tamsulosin HCl (Flomax) 0.4 mg PO BID EV Stop: 09/25/17 08:59 Last Admin: 08/06/17 16:31 Dose: 0.4 mg General: weak, demented HEENT: NC/AT, PERRLA, EOMI, anicteric sclerae, throat clear Neck: Supple, No JVD, No thyromegaly, No LAD Lungs: CTAB Cardiovascular: RRR, Normal S1, Normal S2, without murmur Abdomen: soft, non-tender, non-distended Extremities: clear Neurological: no change Internal Medicine Assmt/Plan - Assessment Assessment: 1.CHF. 2.CAD. 3.DEMENTIA. 4.THROMBOCYTOPENIA - Plan Plan: CONTINUE ON CURRENT MEDICATION AND DIET. Nutritional Asmnt/Malnutr-PDOC - Dietary Evaluation Malnutrition Findings (Please click <Entered> for more info): Nutritional Asmnt/Malnutrition Start: 07/31/17 10: 12 Text: Status: Complete Freq: Document 07/31/17 10:12 SUKHDEV (Rec: 07/31/17 10:16 SUKHDEV FRANKLIN- [email or web address]) Nutritional Asmnt/Malnutrition Patient General Information Nutritional Screening Moderate Risk Screening Diagnosis Psychosisi nos Pertinent Medical Hx/Surgical Hx denebtua, CAD, ischemic cardiomyopathy, HTN, hypercholesterolemia, prostate hypertophy Subjective Information Pt sleep in bed at time of visit Current Diet Order/ Nutrition Support regular Patient / S.O Not Indicated Pertinent Medications lipitor, folate, lasix Pertinent Labs reviewed Nutritional Hx/Data Height 1.65 m Height (Calculated Centimeters) 165.1 Current Weight (lbs) 63.049 kg Weight (Calculated Kilograms) 63.0 Weight (Calculated Grams) 61724.3 Recent Weight Change No Weight Status Approriate GI Symptoms GI Symptoms None Food Allergies No Cultural/Ethnic/Bahai Belief unable to obtain Usual diet at home unable to obtain Skin Integrity/Comment: manolo score 12; intact Current %PO Good (75-100%) Estimated Nutritional Goals BEE in Kcals: Using Current wt Calories/Kcals/Kg 25-30kcals/kg Kcals Calculated 1575-1890kcals/day Protein: Using Current wt Protein g/kg/kg Protein Calculated 63g/day Fluid: ml 1575-1890ml/day (1ml/kcal) Nutritional Problem 1. Problem Problem No nutrition diagnosis at this time Intervention/Recommendation Comments Recommend continuing Regular diet Expected Outcomes/Goals Expected Outcomes/Goals PO intake >75% of meals
[2017-08-06] MEDS: Atorvastatin Calcium 10 MG TAB PO SCH (21:15)
--- NOTE | 2017-08-07 03:06 | Progress Notes ---
DATE: 08/06/2017 Case was discussed with staff of the patient, reviewed records. The patient is a little bit more agitated today. I did decrease his Risperdal yesterday; however, I do not want to increase the dose because he was sedated on a higher dose and give him more time on the smaller dose. He is sleeping better, eating better and no current side effects with the medication, no sedation, no nausea, no extrapyramidal symptoms. We will continue to work the patient in group therapy, milieu therapy, and adjust the medication as needed. JOB# [id number]
[2017-08-07] MEDS: Aspirin 81mg Chewable Tab PO SCH (10:00)
--- NOTE | 2017-08-07 15:58 | Internal Medicine Prog Note ---
Internal Medicine Subjective - Subjective Service Date: 08/07/17 Patient seen and examined:: with staff (HE IS EATING WELL.) Patient is:: awake, non-verbal, in bed, confused Per staff patient has:: no adverse event Internal Medicine Objective - Results Result Diagrams: 08/06/17 08:30 Recent Labs: Laboratory Last Values WBC 6.0 Th/cmm (4.8-10.8) 08/06/17 08:30 RBC 4.72 Mil/cmm (3.80-5.80) 08/06/17 08:30 Hgb 13.3 gm/dL (12-16) 08/06/17 08:30 Hct 40.0 % (41.0-60) L 08/06/17 08:30 MCV 84.8 fl (80-99) 08/06/17 08:30 MCH 28.3 pg (27.0-31.0) 08/06/17 08:30 MCHC Differential 33.3 pg (28.0-36.0) 08/06/17 08:30 RDW 14.9 % (11.5-20.0) 08/06/17 08:30 Plt Count 91 Th/cmm (150-400) L 08/06/17 08:30 MPV 10.9 fl 08/06/17 08:30 Neutrophils % 63.1 % (40.0-80.0) 08/06/17 08:30 Lymphocytes % 25.7 % (20.0-50.0) 08/06/17 08:30 Monocytes % 7.6 % (2.0-10.0) 08/06/17 08:30 Eosinophils % 3.1 % (0.0-5.0) 08/06/17 08:30 Basophils % 0.5 % (0.0-2.0) 08/06/17 08:30 PT 13.1 SECONDS (9.5-11.5) H 08/02/17 06:50 INR 1.25 (0.5-1.4) 08/02/17 06:50 Vitamin B12 475 pg/mL (211-946) 07/30/17 16:20 Folic Acid >20.0 ng/mL (>3.0) 07/30/17 16:20 DEBO Screen Negative 07/30/17 16:20 - Physical Exam Vitals and I&O: Vital Signs Temp 98.8 F 08/07/17 06:18 Pulse 77 08/07/17 09:56 Resp 19 08/07/17 06:18 BP 104/55 08/07/17 10:04 Pulse Ox 97 08/07/17 06:18 Intake & Output 08/06/17 08/07/17 08/07/17 18:59 06:59 18:59 Intake Total 900 Balance 900 Intake: Oral 900 Other: # Voids 5 # Bowel Movements 1 Active Medications: Current Medications Acetaminophen (Tylenol) 650 mg PO Q4H PRN PRN Reason: Pain (Mild) Stop: 09/24/17 18:50 Amiodarone HCl (Cordarone) 200 mg PO DAILY [facility] Stop: 09/25/17 08:59 Last Admin: 08/07/17 09:56 Dose: 200 mg Aspirin (Aspirin Chewable) 81 mg PO DAILY [facility] Stop: 09/25/17 08:59 Last Admin: 08/07/17 10:00 Dose: 81 mg Atorvastatin Calcium (Lipitor) 20 mg PO HS EV PRN Reason: Protocol Stop: 09/24/17 20:59 Last Admin: 08/06/17 21:15 Dose: 20 mg Carvedilol (Coreg) 3.125 mg PO BID EV Stop: 09/25/17 08:59 Last Admin: 08/07/17 10:08 Dose: Not Given Donepezil HCl (Aricept) 5 mg PO HS EV Stop: 09/25/17 20:59 Last Admin: 08/06/17 21:16 Dose: 5 mg Folic Acid (Folate) 1 mg PO DAILY [facility] Stop: 09/25/17 08:59 Last Admin: 08/07/17 10:00 Dose: 1 mg Furosemide (Lasix) 20 mg PO DAILY EV Stop: 09/25/17 08:59 Last Admin: 08/07/17 10:04 Dose: 20 mg Lorazepam (Ativan) 0.5 mg PO Q6H PRN; Protocol PRN Reason: Anxiety Stop: 10/02/17 12:30 Magnesium Hydroxide (Milk Of Magnesia) 30 ml PO DAILY PRN PRN Reason: Constipation Stop: 09/30/17 15:31 Last Admin: 08/01/17 18:34 Dose: 30 ml Risperidone (Risperdal) 0.5 mg PO BID EV PRN Reason: Protocol Stop: 10/04/17 11:20 Last Admin: 08/07/17 10:00 Dose: 0.5 mg Tamsulosin HCl (Flomax) 0.4 mg PO BID [facility] Stop: 09/25/17 08:59 Last Admin: 08/07/17 10:00 Dose: 0.4 mg General: weak, demented HEENT: NC/AT, PERRLA, EOMI, anicteric sclerae, throat clear Neck: Supple, No JVD, No thyromegaly, No LAD Lungs: CTAB Cardiovascular: RRR, Normal S1, Normal S2, without murmur Abdomen: soft, non-tender, non-distended Extremities: clear Neurological: no change Internal Medicine Assmt/Plan - Assessment Assessment: 1.CHF. 2.CAD. 3.DEMENTIA. 4.THROMBOCYTOPENIA - Plan Plan: CONTINUE ON CURRENT MEDICATION AND DIET. Nutritional Asmnt/Malnutr-PDOC - Dietary Evaluation Malnutrition Findings (Please click <Entered> for more info): Nutritional Asmnt/Malnutrition Start: 07/31/17 10: 12 Text: Status: Complete Freq: Document 07/31/17 10:12 SUKHDEV (Rec: 07/31/17 10:16 SUKHDEV FRANKLIN- [email or web address]) Nutritional Asmnt/Malnutrition Patient General Information Nutritional Screening Moderate Risk Screening Diagnosis Psychosisi nos Pertinent Medical Hx/Surgical Hx denebtua, CAD, ischemic cardiomyopathy, HTN, hypercholesterolemia, prostate hypertophy Subjective Information Pt sleep in bed at time of visit Current Diet Order/ Nutrition Support regular Patient / S.O Not Indicated Pertinent Medications lipitor, folate, lasix Pertinent Labs reviewed Nutritional Hx/Data Height 1.65 m Height (Calculated Centimeters) 165.1 Current Weight (lbs) 63.049 kg Weight (Calculated Kilograms) 63.0 Weight (Calculated Grams) 28389.3 Recent Weight Change No Weight Status Approriate GI Symptoms GI Symptoms None Food Allergies No Cultural/Ethnic/Mormonism Belief unable to obtain Usual diet at home unable to obtain Skin Integrity/Comment: manolo score 12; intact Current %PO Good (75-100%) Estimated Nutritional Goals BEE in Kcals: Using Current wt Calories/Kcals/Kg 25-30kcals/kg Kcals Calculated 1575-1890kcals/day Protein: Using Current wt Protein g/kg/kg Protein Calculated 63g/day Fluid: ml 1575-1890ml/day (1ml/kcal) Nutritional Problem 1. Problem Problem No nutrition diagnosis at this time Intervention/Recommendation Comments Recommend continuing Regular diet Expected Outcomes/Goals Expected Outcomes/Goals PO intake >75% of meals
[2017-08-07] MEDS: Atorvastatin Calcium 10 MG TAB PO SCH (20:41)
--- NOTE | 2017-08-07 21:31 | Progress Notes ---
DATE: SUBJECTIVE: The patient seen, chart reviewed, discussed with staff. The patient currently remains unpredictable, impulsive, needing redirection and continues to be on a one-to-one, not responding well to redirection. The patient is being seen by Dr. Lynch, she still notes behaviors. Dr. Lynch concerned about side effects, she has been titrating medications. The patient currently unsafe for a lower level of care. ASSESSMENT: The patient remains symptomatic, episodes of screaming, but he is pretty quiet last night, refusing interview this morning. Medications were noted. No overt side effects. Currently on Risperdal. JOB# [id number]
[2017-08-08] MEDS: Aspirin 81mg Chewable Tab PO SCH (08:47)
--- NOTE | 2017-08-08 12:03 | Progress Notes ---
DATE: SUBJECTIVE: The patient seen, chart reviewed, discussed with staff. The patient is currently in the hospital, noted to be withdrawn, confused, bouts of confusional episodes, acting out behaviors, unruly behaviors, uncooperative, easily agitated. On [id number], the patient remains withdrawn, confused, refusing to speak with me this morning, but he has been calm this morning and slept well last night. Medications were also reviewed. No noted side effects, no EPS for example. Dr. Lynch has been adjusting medications. ASSESSMENT: The patient with some periods of agitation, impulsive, unpredictable. PLAN: We will continue to monitor and adjust medications. Given ongoing symptoms, the patient is not safe for discharge. [facility]# [id number]
--- NOTE | 2017-08-08 17:42 | Internal Medicine Prog Note ---
Internal Medicine Subjective - Subjective Service Date: 08/08/17 Patient seen and examined:: without staff Patient is:: awake, non-verbal, in bed, confused Per staff patient has:: no adverse event Internal Medicine Objective - Results Result Diagrams: 08/06/17 08:30 Recent Labs: Laboratory Last Values WBC 6.0 Th/cmm (4.8-10.8) 08/06/17 08:30 RBC 4.72 Mil/cmm (3.80-5.80) 08/06/17 08:30 Hgb 13.3 gm/dL (12-16) 08/06/17 08:30 Hct 40.0 % (41.0-60) L 08/06/17 08:30 MCV 84.8 fl (80-99) 08/06/17 08:30 MCH 28.3 pg (27.0-31.0) 08/06/17 08:30 MCHC Differential 33.3 pg (28.0-36.0) 08/06/17 08:30 RDW 14.9 % (11.5-20.0) 08/06/17 08:30 Plt Count 91 Th/cmm (150-400) L 08/06/17 08:30 MPV 10.9 fl 08/06/17 08:30 Neutrophils % 63.1 % (40.0-80.0) 08/06/17 08:30 Lymphocytes % 25.7 % (20.0-50.0) 08/06/17 08:30 Monocytes % 7.6 % (2.0-10.0) 08/06/17 08:30 Eosinophils % 3.1 % (0.0-5.0) 08/06/17 08:30 Basophils % 0.5 % (0.0-2.0) 08/06/17 08:30 PT 13.1 SECONDS (9.5-11.5) H 08/02/17 06:50 INR 1.25 (0.5-1.4) 08/02/17 06:50 Vitamin B12 475 pg/mL (211-946) 07/30/17 16:20 Folic Acid >20.0 ng/mL (>3.0) 07/30/17 16:20 DEBO Screen Negative 07/30/17 16:20 - Physical Exam Vitals and I&O: Vital Signs Temp 97.4 F 08/08/17 06:09 Pulse 63 08/08/17 16:41 Resp 20 08/08/17 06:09 BP 128/68 08/08/17 16:41 Pulse Ox 99 08/08/17 06:09 Intake & Output 08/07/17 08/08/17 08/08/17 18:59 06:59 18:59 Intake Total 1000 Balance 1000 Intake: Oral 1000 Other: # Voids 4 # Bowel Movements 1 Active Medications: Current Medications Acetaminophen (Tylenol) 650 mg PO Q4H PRN PRN Reason: Pain (Mild) Stop: 09/24/17 18:50 Amiodarone HCl (Cordarone) 200 mg PO DAILY [facility] Stop: 09/25/17 08:59 Last Admin: 08/08/17 08:46 Dose: 200 mg Aspirin (Aspirin Chewable) 81 mg PO DAILY [facility] Stop: 09/25/17 08:59 Last Admin: 08/08/17 08:47 Dose: 81 mg Atorvastatin Calcium (Lipitor) 20 mg PO HS EV PRN Reason: Protocol Stop: 09/24/17 20:59 Last Admin: 08/07/17 20:41 Dose: 20 mg Carvedilol (Coreg) 3.125 mg PO BID [facility] Stop: 09/25/17 08:59 Last Admin: 08/08/17 16:41 Dose: 3.125 mg Donepezil HCl (Aricept) 5 mg PO HS [facility] Stop: 09/25/17 20:59 Last Admin: 08/07/17 20:42 Dose: 5 mg Folic Acid (Folate) 1 mg PO DAILY [facility] Stop: 09/25/17 08:59 Last Admin: 08/08/17 08:47 Dose: 1 mg Furosemide (Lasix) 20 mg PO DAILY [facility] Stop: 09/25/17 08:59 Last Admin: 08/08/17 08:47 Dose: 20 mg Lorazepam (Ativan) 0.5 mg PO Q6H PRN; Protocol PRN Reason: Anxiety Stop: 10/02/17 12:30 Last Admin: 08/08/17 16:41 Dose: 0.5 mg Magnesium Hydroxide (Milk Of Magnesia) 30 ml PO DAILY PRN PRN Reason: Constipation Stop: 09/30/17 15:31 Last Admin: 08/01/17 18:34 Dose: 30 ml Risperidone (Risperdal) 0.5 mg PO BID EV PRN Reason: Protocol Stop: 10/04/17 11:20 Last Admin: 08/08/17 16:41 Dose: 0.5 mg Tamsulosin HCl (Flomax) 0.4 mg PO BID EV Stop: 09/25/17 08:59 Last Admin: 08/08/17 16:41 Dose: 0.4 mg General: weak, demented HEENT: NC/AT, PERRLA, EOMI, anicteric sclerae, throat clear Neck: Supple, No JVD, No thyromegaly, No LAD Lungs: CTAB Cardiovascular: RRR, Normal S1, Normal S2, without murmur Abdomen: soft, non-tender, non-distended Extremities: clear Neurological: no change Internal Medicine Assmt/Plan - Assessment Assessment: 1.CHF. 2.CAD. 3.DEMENTIA. 4.THROMBOCYTOPENIA - Plan Plan: CONTINUE ON CURRENT MEDICATION AND DIET. Nutritional Asmnt/Malnutr-PDOC - Dietary Evaluation Malnutrition Findings (Please click <Entered> for more info): Nutritional Asmnt/Malnutrition Start: 07/31/17 10: 12 Text: Status: Complete Freq: Document 07/31/17 10:12 SUKHDEV (Rec: 07/31/17 10:16 SUKHDEV FRANKLIN- [email or web address]) Nutritional Asmnt/Malnutrition Patient General Information Nutritional Screening Moderate Risk Screening Diagnosis Psychosisi nos Pertinent Medical Hx/Surgical Hx denebtua, CAD, ischemic cardiomyopathy, HTN, hypercholesterolemia, prostate hypertophy Subjective Information Pt sleep in bed at time of visit Current Diet Order/ Nutrition Support regular Patient / S.O Not Indicated Pertinent Medications lipitor, folate, lasix Pertinent Labs reviewed Nutritional Hx/Data Height 1.65 m Height (Calculated Centimeters) 165.1 Current Weight (lbs) 63.049 kg Weight (Calculated Kilograms) 63.0 Weight (Calculated Grams) 09521.3 Recent Weight Change No Weight Status Approriate GI Symptoms GI Symptoms None Food Allergies No Cultural/Ethnic/Restorationist Belief unable to obtain Usual diet at home unable to obtain Skin Integrity/Comment: manolo score 12; intact Current %PO Good (75-100%) Estimated Nutritional Goals BEE in Kcals: Using Current wt Calories/Kcals/Kg 25-30kcals/kg Kcals Calculated 1575-1890kcals/day Protein: Using Current wt Protein g/kg/kg Protein Calculated 63g/day Fluid: ml 1575-1890ml/day (1ml/kcal) Nutritional Problem 1. Problem Problem No nutrition diagnosis at this time Intervention/Recommendation Comments Recommend continuing Regular diet Expected Outcomes/Goals Expected Outcomes/Goals PO intake >75% of meals
[2017-08-08] MEDS: Atorvastatin Calcium 10 MG TAB PO SCH (20:19)
[2017-08-09] MEDS: Aspirin 81mg Chewable Tab PO SCH (09:54)
--- NOTE | 2017-08-09 10:25 | General Progress Note ---
Subjective - Review of Systems Service Date: 08/09/17 Objective - Results Result Diagrams: 08/06/17 08:30 Recent Labs: Laboratory Last Values WBC 6.0 Th/cmm (4.8-10.8) 08/06/17 08:30 RBC 4.72 Mil/cmm (3.80-5.80) 08/06/17 08:30 Hgb 13.3 gm/dL (12-16) 08/06/17 08:30 Hct 40.0 % (41.0-60) L 08/06/17 08:30 MCV 84.8 fl (80-99) 08/06/17 08:30 MCH 28.3 pg (27.0-31.0) 08/06/17 08:30 MCHC Differential 33.3 pg (28.0-36.0) 08/06/17 08:30 RDW 14.9 % (11.5-20.0) 08/06/17 08:30 Plt Count 91 Th/cmm (150-400) L 08/06/17 08:30 MPV 10.9 fl 08/06/17 08:30 Neutrophils % 63.1 % (40.0-80.0) 08/06/17 08:30 Lymphocytes % 25.7 % (20.0-50.0) 08/06/17 08:30 Monocytes % 7.6 % (2.0-10.0) 08/06/17 08:30 Eosinophils % 3.1 % (0.0-5.0) 08/06/17 08:30 Basophils % 0.5 % (0.0-2.0) 08/06/17 08:30 PT 13.1 SECONDS (9.5-11.5) H 08/02/17 06:50 INR 1.25 (0.5-1.4) 08/02/17 06:50 Vitamin B12 475 pg/mL (211-946) 07/30/17 16:20 Folic Acid >20.0 ng/mL (>3.0) 07/30/17 16:20 DEBO Screen Negative 07/30/17 16:20 - Physical Exam Vitals and I&O: Vital Signs Temp 98 F 08/08/17 20:00 Pulse 60 08/08/17 20:00 Resp 18 08/08/17 20:00 BP 122/67 08/08/17 20:00 Pulse Ox 98 08/08/17 20:00 Intake & Output 08/08/17 08/09/17 08/09/17 18:59 06:59 18:59 Intake Total 120 Balance 120 Intake: Oral 120 Other: # Voids 3 Active Medications: Current Medications Acetaminophen (Tylenol) 650 mg PO Q4H PRN PRN Reason: Pain (Mild) Stop: 09/24/17 18:50 Amiodarone HCl (Cordarone) 200 mg PO DAILY [facility] Stop: 09/25/17 08:59 Last Admin: 08/08/17 08:46 Dose: 200 mg Aspirin (Aspirin Chewable) 81 mg PO DAILY [facility] Stop: 09/25/17 08:59 Last Admin: 08/09/17 09:54 Dose: 81 mg Atorvastatin Calcium (Lipitor) 20 mg PO HS [facility] PRN Reason: Protocol Stop: 09/24/17 20:59 Last Admin: 08/08/17 20:19 Dose: 20 mg Carvedilol (Coreg) 3.125 mg PO BID [facility] Stop: 09/25/17 08:59 Last Admin: 08/08/17 16:41 Dose: 3.125 mg Donepezil HCl (Aricept) 5 mg PO HS [facility] Stop: 09/25/17 20:59 Last Admin: 08/08/17 20:19 Dose: 5 mg Folic Acid (Folate) 1 mg PO DAILY [facility] Stop: 09/25/17 08:59 Last Admin: 08/09/17 09:54 Dose: 1 mg Furosemide (Lasix) 20 mg PO DAILY [facility] Stop: 09/25/17 08:59 Last Admin: 08/08/17 08:47 Dose: 20 mg Lorazepam (Ativan) 0.5 mg PO Q6H PRN; Protocol PRN Reason: Anxiety Stop: 10/02/17 12:30 Last Admin: 08/08/17 16:41 Dose: 0.5 mg Magnesium Hydroxide (Milk Of Magnesia) 30 ml PO DAILY PRN PRN Reason: Constipation Stop: 09/30/17 15:31 Last Admin: 08/01/17 18:34 Dose: 30 ml Risperidone (Risperdal) 0.5 mg PO BID EV PRN Reason: Protocol Stop: 10/04/17 11:20 Last Admin: 08/09/17 09:54 Dose: 0.5 mg Tamsulosin HCl (Flomax) 0.4 mg PO BID [facility] Stop: 09/25/17 08:59 Last Admin: 08/09/17 09:54 Dose: 0.4 mg General: Alert, No acute distress HEENT: Atraumatic, PERRLA, EOMI Neck: Supple, JVD Cardiovascular: Regular rate, Normal S1, Normal S2 Lungs: Clear to auscultation Abdomen: Bowel sounds, Soft Assessment/Plan - Assessment Assessment: * Thrombocytopenia stable, 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 * Dementia * Psychosis follow US report B12, folate normal normal spleen size on US plt stable , fluctuating, asymptomatic monitor plt/cbc today Nutritional Asmnt/Malnutr-PDOC - Dietary Evaluation Malnutrition Findings (Please click <Entered> for more info): Nutritional Asmnt/Malnutrition Start: 07/31/17 10: 12 Text: Status: Complete Freq: Document 07/31/17 10:12 SUKHDEV (Rec: 07/31/17 10:16 SUKHDEV REID- [email or web address]) Nutritional Asmnt/Malnutrition Patient General Information Nutritional Screening Moderate Risk Screening Diagnosis Psychosisi nos Pertinent Medical Hx/Surgical Hx denebtua, CAD, ischemic cardiomyopathy, HTN, hypercholesterolemia, prostate hypertophy Subjective Information Pt sleep in bed at time of visit Current Diet Order/ Nutrition Support regular Patient / S.O Not Indicated Pertinent Medications lipitor, folate, lasix Pertinent Labs reviewed Nutritional Hx/Data Height 1.65 m Height (Calculated Centimeters) 165.1 Current Weight (lbs) 63.049 kg Weight (Calculated Kilograms) 63.0 Weight (Calculated Grams) 85206.3 Recent Weight Change No Weight Status Approriate GI Symptoms GI Symptoms None Food Allergies No Cultural/Ethnic/Sabianism Belief unable to obtain Usual diet at home unable to obtain Skin Integrity/Comment: manolo score 12; intact Current %PO Good (75-100%) Estimated Nutritional Goals BEE in Kcals: Using Current wt Calories/Kcals/Kg 25-30kcals/kg Kcals Calculated 1575-1890kcals/day Protein: Using Current wt Protein g/kg/kg Protein Calculated 63g/day Fluid: ml 1575-1890ml/day (1ml/kcal) Nutritional Problem 1. Problem Problem No nutrition diagnosis at this time Intervention/Recommendation Comments Recommend continuing Regular diet Expected Outcomes/Goals Expected Outcomes/Goals PO intake >75% of meals
[2017-08-09 16:15] LABS: WHITE BLOOD COUNT 6.4 Th/cmm (4.8-10.8)
[2017-08-09 16:21] LABS: % BASOPHILS 0.4 % (0.0-2.0); % EOSINOPHILS 2.7 % (0.0-5.0); % LYMPHOCYTES 26.9 % (20.0-50.0); % MONOCYTES 12.1 % (2.0-10.0); % NEUTROPHILS 57.9 % (40.0-80.0); HEMOGLOBIN 12.5 gm/dL (12-16); MEAN CELL VOLUME 83.6 fl (80-99); MEAN CORPUSCULAR HEMOGLOBIN 28.2 pg (27.0-31.0); MEAN CORPUSCULAR HGB CONC 33.8 pg (28.0-36.0); MEAN PLATELET VOLUME 14.4 fl; NEUTROPHILE ABSOLUTE 3.7 Th/cmm (1.8-8.0); PLATELET COUNT 95 Th/cmm (150-400); RED BLOOD COUNT 4.43 Mil/cmm (3.80-5.80); RED CELL DISTRIBUTION WIDTH 14.9 % (11.5-20.0)
--- NOTE | 2017-08-09 17:21 | Internal Medicine Prog Note ---
Internal Medicine Subjective - Subjective Service Date: 08/09/17 Patient seen and examined:: without staff Patient is:: awake, non-verbal, in bed, confused Per staff patient has:: no adverse event Internal Medicine Objective - Results Result Diagrams: 08/09/17 16:08 Recent Labs: Laboratory Last Values WBC 6.4 Th/cmm (4.8-10.8) 08/09/17 16:08 RBC 4.43 Mil/cmm (3.80-5.80) 08/09/17 16:08 Hgb 12.5 gm/dL (12-16) 08/09/17 16:08 Hct 37.0 % (41.0-60) L 08/09/17 16:08 MCV 83.6 fl (80-99) 08/09/17 16:08 MCH 28.2 pg (27.0-31.0) 08/09/17 16:08 MCHC Differential 33.8 pg (28.0-36.0) 08/09/17 16:08 RDW 14.9 % (11.5-20.0) 08/09/17 16:08 Plt Count 95 Th/cmm (150-400) L 08/09/17 16:08 MPV 14.4 fl 08/09/17 16:08 Neutrophils % 57.9 % (40.0-80.0) 08/09/17 16:08 Lymphocytes % 26.9 % (20.0-50.0) 08/09/17 16:08 Monocytes % 12.1 % (2.0-10.0) H 08/09/17 16:08 Eosinophils % 2.7 % (0.0-5.0) 08/09/17 16:08 Basophils % 0.4 % (0.0-2.0) 08/09/17 16:08 PT 13.1 SECONDS (9.5-11.5) H 08/02/17 06:50 INR 1.25 (0.5-1.4) 08/02/17 06:50 Vitamin B12 475 pg/mL (211-946) 07/30/17 16:20 Folic Acid >20.0 ng/mL (>3.0) 07/30/17 16:20 DEBO Screen Negative 07/30/17 16:20 - Physical Exam Vitals and I&O: Vital Signs Temp 98.0 F 08/09/17 15:24 Pulse 65 08/09/17 15:24 Resp 20 08/09/17 15:24 BP 105/57 08/09/17 15:24 Pulse Ox 95 08/09/17 15:24 Intake & Output 08/08/17 08/09/17 08/09/17 18:59 06:59 18:59 Intake Total 120 Balance 120 Intake: Oral 120 Other: # Voids 3 Active Medications: Current Medications Acetaminophen (Tylenol) 650 mg PO Q4H PRN PRN Reason: Pain (Mild) Stop: 09/24/17 18:50 Amiodarone HCl (Cordarone) 200 mg PO DAILY [facility] Stop: 09/25/17 08:59 Last Admin: 08/09/17 10:45 Dose: Not Given Aspirin (Aspirin Chewable) 81 mg PO DAILY [facility] Stop: 09/25/17 08:59 Last Admin: 08/09/17 09:54 Dose: 81 mg Atorvastatin Calcium (Lipitor) 20 mg PO HS [facility] PRN Reason: Protocol Stop: 09/24/17 20:59 Last Admin: 08/08/17 20:19 Dose: 20 mg Carvedilol (Coreg) 3.125 mg PO BID [facility] Stop: 09/25/17 08:59 Last Admin: 08/09/17 10:46 Dose: Not Given Donepezil HCl (Aricept) 5 mg PO HS [facility] Stop: 09/25/17 20:59 Last Admin: 08/08/17 20:19 Dose: 5 mg Folic Acid (Folate) 1 mg PO DAILY [facility] Stop: 09/25/17 08:59 Last Admin: 08/09/17 09:54 Dose: 1 mg Furosemide (Lasix) 20 mg PO DAILY [facility] Stop: 09/25/17 08:59 Last Admin: 08/09/17 10:46 Dose: Not Given Lorazepam (Ativan) 0.5 mg PO Q6H PRN; Protocol PRN Reason: Anxiety Stop: 10/02/17 12:30 Last Admin: 08/08/17 16:41 Dose: 0.5 mg Magnesium Hydroxide (Milk Of Magnesia) 30 ml PO DAILY PRN PRN Reason: Constipation Stop: 09/30/17 15:31 Last Admin: 08/01/17 18:34 Dose: 30 ml Risperidone (Risperdal) 0.5 mg PO BID [facility] PRN Reason: Protocol Stop: 10/04/17 11:20 Last Admin: 08/09/17 09:54 Dose: 0.5 mg Tamsulosin HCl (Flomax) 0.4 mg PO BID [facility] Stop: 09/25/17 08:59 Last Admin: 08/09/17 09:54 Dose: 0.4 mg General: weak, demented HEENT: NC/AT, PERRLA, EOMI, anicteric sclerae, throat clear Neck: Supple, No JVD, No thyromegaly, No LAD Lungs: CTAB Cardiovascular: RRR, Normal S1, Normal S2, without murmur Abdomen: soft, non-tender, non-distended Extremities: clear Neurological: no change Internal Medicine Assmt/Plan - Assessment Assessment: 1.CHF. 2.CAD. 3.DEMENTIA. 4.THROMBOCYTOPENIA - Plan Plan: CONTINUE ON CURRENT MEDICATION AND DIET. Nutritional Asmnt/Malnutr-PDOC - Dietary Evaluation Malnutrition Findings (Please click <Entered> for more info): Nutritional Asmnt/Malnutrition Start: 07/31/17 10: 12 Text: Status: Complete Freq: Document 07/31/17 10:12 SUKHDEV (Rec: 07/31/17 10:16 SUKHDEV FRANKLIN- [email or web address]) Nutritional Asmnt/Malnutrition Patient General Information Nutritional Screening Moderate Risk Screening Diagnosis Psychosisi nos Pertinent Medical Hx/Surgical Hx denebtua, CAD, ischemic cardiomyopathy, HTN, hypercholesterolemia, prostate hypertophy Subjective Information Pt sleep in bed at time of visit Current Diet Order/ Nutrition Support regular Patient / S.O Not Indicated Pertinent Medications lipitor, folate, lasix Pertinent Labs reviewed Nutritional Hx/Data Height 1.65 m Height (Calculated Centimeters) 165.1 Current Weight (lbs) 63.049 kg Weight (Calculated Kilograms) 63.0 Weight (Calculated Grams) 93629.3 Recent Weight Change No Weight Status Approriate GI Symptoms GI Symptoms None Food Allergies No Cultural/Ethnic/Gnosticism Belief unable to obtain Usual diet at home unable to obtain Skin Integrity/Comment: manolo score 12; intact Current %PO Good (75-100%) Estimated Nutritional Goals BEE in Kcals: Using Current wt Calories/Kcals/Kg 25-30kcals/kg Kcals Calculated 1575-1890kcals/day Protein: Using Current wt Protein g/kg/kg Protein Calculated 63g/day Fluid: ml 1575-1890ml/day (1ml/kcal) Nutritional Problem 1. Problem Problem No nutrition diagnosis at this time Intervention/Recommendation Comments Recommend continuing Regular diet Expected Outcomes/Goals Expected Outcomes/Goals PO intake >75% of meals
--- NOTE | 2017-08-09 20:44 | Discharge Summary ---
DATE OF DISCHARGE: 08/09/2017 IDENTIFYING INFORMATION: The patient is an 86-year-old male. CHIEF COMPLAINT: No answer. HISTORY OF PRESENT ILLNESS: The patient was transferred from the medical floor. He was seen there by me because he was acting out. He was not cooperative, easily agitated. He was given Ativan. He was a poor historian. Unable to participate in a meaningful conversation or make plan for self-care. COURSE IN THE HOSPITAL: The patient continues to be easily agitated, so I have initiated Risperdal on him to help with his agitation, increased the dose to 0.5 mg twice a day ____ was high and had to be lowered down because of his sedation. We will continued with Flomax, magnesium 100, also was given Lasix, folic acid. I also initiated on him, Aricept 5 mg at bedtime, was kept on atorvastatin, Coreg, aspirin and Cardura. The patient progressively got better. He was easy to redirect. He was sleeping well and eating well. So, we felt he was no longer meeting criteria for further inpatient treatment and was discharged to a lesser level of care. FINAL DIAGNOSES: AXIS I: Psychosis, not otherwise specified, dementia. MEDICAL DIAGNOSES: Benign prostatic hypertrophy, hypertension, hypercholesterolemia, and coronary artery disease. PLAN: The patient will be discharged to [facility] and follow up with the psychiatrist and primary care physician there. EXPECTED OUTCOME: Stable if the patient complies with the above. JOB# [id number]
--- NOTE | 2017-08-11 11:53 | General Progress Note ---
Subjective - Review of Systems Service Date: 08/11/17 Objective - Results Result Diagrams: 08/09/17 16:08 Recent Labs: Laboratory Last Values WBC 6.4 Th/cmm (4.8-10.8) 08/09/17 16:08 RBC 4.43 Mil/cmm (3.80-5.80) 08/09/17 16:08 Hgb 12.5 gm/dL (12-16) 08/09/17 16:08 Hct 37.0 % (41.0-60) L 08/09/17 16:08 MCV 83.6 fl (80-99) 08/09/17 16:08 MCH 28.2 pg (27.0-31.0) 08/09/17 16:08 MCHC Differential 33.8 pg (28.0-36.0) 08/09/17 16:08 RDW 14.9 % (11.5-20.0) 08/09/17 16:08 Plt Count 95 Th/cmm (150-400) L 08/09/17 16:08 MPV 14.4 fl 08/09/17 16:08 Neutrophils % 57.9 % (40.0-80.0) 08/09/17 16:08 Lymphocytes % 26.9 % (20.0-50.0) 08/09/17 16:08 Monocytes % 12.1 % (2.0-10.0) H 08/09/17 16:08 Eosinophils % 2.7 % (0.0-5.0) 08/09/17 16:08 Basophils % 0.4 % (0.0-2.0) 08/09/17 16:08 PT 13.1 SECONDS (9.5-11.5) H 08/02/17 06:50 INR 1.25 (0.5-1.4) 08/02/17 06:50 Vitamin B12 475 pg/mL (211-946) 07/30/17 16:20 Folic Acid >20.0 ng/mL (>3.0) 07/30/17 16:20 DEBO Screen Negative 07/30/17 16:20 - Physical Exam Vitals and I&O: Vital Signs Temp 98.0 F 08/09/17 15:24 Pulse 65 08/09/17 17:33 Resp 20 08/09/17 15:24 BP 105/57 08/09/17 17:33 Pulse Ox 95 08/09/17 15:24 General: Alert, No acute distress HEENT: Atraumatic, PERRLA, EOMI Neck: Supple, JVD Cardiovascular: Regular rate, Normal S1, Normal S2 Lungs: Clear to auscultation Abdomen: Bowel sounds, Soft Assessment/Plan - Assessment Assessment: * Thrombocytopenia stable, 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 * Dementia * Psychosis follow US report B12, folate normal normal spleen size on US plt stable , fluctuating, asymptomatic monitor plt/cbc Nutritional Asmnt/Malnutr-PDOC - Dietary Evaluation Malnutrition Findings (Please click <Entered> for more info): Nutritional Asmnt/Malnutrition Start: 07/31/17 10: 12 Text: Status: Complete Freq: Document 07/31/17 10:12 SUKHDEV (Rec: 07/31/17 10:16 [email or web address] REID- [id number]) Nutritional Asmnt/Malnutrition Patient General Information Nutritional Screening Moderate Risk Screening Diagnosis Psychosisi nos Pertinent Medical Hx/Surgical Hx denebtua, CAD, ischemic cardiomyopathy, HTN, hypercholesterolemia, prostate hypertophy Subjective Information Pt sleep in bed at time of visit Current Diet Order/ Nutrition Support regular Patient / S.O Not Indicated Pertinent Medications lipitor, folate, lasix Pertinent Labs reviewed Nutritional Hx/Data Height 1.65 m Height (Calculated Centimeters) 165.1 Current Weight (lbs) 63.049 kg Weight (Calculated Kilograms) 63.0 Weight (Calculated Grams) 03813.3 Recent Weight Change No Weight Status Approriate GI Symptoms GI Symptoms None Food Allergies No Cultural/Ethnic/Orthodox Belief unable to obtain Usual diet at home unable to obtain Skin Integrity/Comment: manolo score 12; intact Current %PO Good (75-100%) Estimated Nutritional Goals BEE in Kcals: Using Current wt Calories/Kcals/Kg 25-30kcals/kg Kcals Calculated 1575-1890kcals/day Protein: Using Current wt Protein g/kg/kg Protein Calculated 63g/day Fluid: ml 1575-1890ml/day (1ml/kcal) Nutritional Problem 1. Problem Problem No nutrition diagnosis at this time Intervention/Recommendation Comments Recommend continuing Regular diet Expected Outcomes/Goals Expected Outcomes/Goals PO intake >75% of meals
== END 2017-08-09 18:20 | DRG 885 ==
LOC: GERO 15:32
PROVIDERS: ADMIT Psychiatry & Neurology Psychiatry; ATTEND Psychiatry & Neurology Psychiatry
DX: F29 Unspecified psychosis not due to a substance or known physiological condition (principal); F03.90 Unspecified dementia, unspecified severity, without behavioral disturbance, psychotic disturbance, mood disturbance, and anxiety; I50.9 Heart failure, unspecified; I11.0 Hypertensive heart disease with heart failure; D69.6 Thrombocytopenia, unspecified; N40.0 Benign prostatic hyperplasia without lower urinary tract symptoms; I25.5 Ischemic cardiomyopathy; I25.10 Atherosclerotic heart disease of native coronary artery without angina pectoris; E78.00 Pure hypercholesterolemia, unspecified
CPT/HCPCS: 36415-UA; 76700-TC; 82607-90; 82746-90; 85014-TC; 85018-TC; 85025-TC; 85049-TC; 85610-TC; 86038-90; 93005; Z7610